=== PATIENT | male | born 1950 | race African-American/Black ===

== ENCOUNTER 2017-04-22 05:47 | Emergency (ER) | payer MEDICARE ==
[~2017-04-22] VITALS: Ht 170.2 cm; Wt 71.7 kg
[2017-04-22] MEDS ORDERED: UNOBMED (05:49)
--- NOTE | 2017-04-22 05:52 | Emergency Room Report ---
History of Present Illness General Chief Complaint: Nausea, Vomiting, and Diarrhea Source: Patient Present Illness HPI Is a 66-year-old who has multiple medical problem. He also has a history of alcohol abuse. He just got to sober living for rehabilitation. He presents with chief complaint of vomiting and diarrhea. Also abdominal cramps. Onset for last couple hours. [place] weak. No fever chills but no chest pain. Last drink was over a week ago. He was doing well until tonight. Denies any other complaint. Allergies: Coded Allergies: No Known Allergies (Unverified , 04/22/17) Patient History Past Medical History: see triage record, old chart reviewed, HTN Past Surgical History: other Pertinent Family History: none Social History: Reports: alcohol use Immunizations: other Reviewed Nursing Documentation: PMH: Agreed, PSxH: Agreed Nursing Documentation-PMH Hx Hypertension: Yes History Of Psychiatric Problem: Yes - PTSD Hx Seizures: Yes Review of Systems Eye: Denies: eye pain, blurred vision ENT: Denies: ear pain, nose congestion, throat swelling Respiratory: Denies: cough, shortness of breath Cardiovascular: Denies: chest pain, palpitations Gastrointestinal: Reports: abdominal pain, diarrhea, nausea, vomiting Musculoskeletal: Denies: back pain, joint pain Skin: Denies: rash Neurological: Denies: headache, numbness Endocrine: Denies: increased thirst, increased urine Hematologic/Lymphatic: Denies: easy bruising All Other Systems: negative except mentioned in HPI Physical Exam Vital Signs Date Time Temp Pulse Resp B/P (MAP) Pulse Ox O2 Delivery O2 Flow Rate FiO2 04/22/17 05:41 97.9 105 13 94/72 96 vitals with tachycardia and hypotension Sp02 EP Interpretation: reviewed, normal General Appearance: well appearing, no apparent distress, alert Head: normocephalic, atraumatic Eyes: bilateral eye PERRL, bilateral eye EOMI ENT: hearing grossly normal, normal pharynx Neck: full range of motion, supple, no meningismus Respiratory: chest non-tender, lungs clear, normal breath sounds Cardiovascular #1: regular rate, rhythm, no murmur Gastrointestinal: normal bowel sounds, non tender, no mass, no organomegaly, no bruit, non-distended, abnormal bowel sounds - Hyperactive Musculoskeletal: back normal, gait/station normal, normal range of motion Psychiatric: mood/affect normal Skin: warm/dry Medical Decision Making Diagnostic Impression: Primary Impression: Nausea, vomiting, and diarrhea ER Course Patient presents with nausea vomiting diarrhea. Most likely an acute gastroenteritis. No evidence of acute abdomen. He felt better now. No vomiting here. It labs are unremarkable patient can be discharged home. Last Vital Signs Date Time Temp Pulse Resp B/P (MAP) Pulse Ox O2 Delivery O2 Flow Rate FiO2 04/22/17 05:41 97.9 105 13 94/72 96 Status: improved Disposition: HOME, SELF-CARE Condition: Stable Scripts Ondansetron (Zofran) 4 Mg Tablet 4 MG ORAL Q6H Y for Nausea & Vomiting, #10 TAB 0 Refills Prov: RAHCELE POSADA M.D. 04/22/17 Patient Instructions: DIET, Vomiting or Diarrhea [6yr-Adult] Additional Instructions: followup with your Dr. in 7 days. Return if symptom worsen. RACHELE POSADA M.D. Apr 22, 2017 05:52
[2017-04-22 06:00] VITALS: BP 94/72
[2017-04-22] MEDS ORDERED: ZOFRAN4 MG ORAL (06:35)
[2017-04-22 06:40] LABS: ALBUMIN/GLOBULIN RATIO 1.3 (1.0-2.7); CALCIUM 9.8 mg/dL (8.6-10.2); CREATININE 1.9 mg/dL (0.7-1.2); GLOMERULAR FILTRATION RATE 43.4 mL/min (>60); TOTAL PROTEIN 7.5 g/dL (6.6-8.7)
[2017-04-22 07:04] LABS: BILIRUBIN,DIRECT 0.2 mg/dL (0.1-0.3)
[2017-04-22 07:08] LABS: BASOPHILS % (AUTO) 0.8 % (0.0-2.0); EOSINOPHILS % (AUTO) 0.2 % (0.0-3.0); LYMPHOCYTES % (AUTO) 19.8 % (20.0-45.0); MEAN CORPUSCULAR HEMOGLOBIN 33.2 PG (27.0-31.0); MEAN CORPUSCULAR HGB CONC 34.7 G/DL (32.0-36.0); MEAN CORPUSCULAR VOLUME 96 FL (80-99); MEAN PLATELET VOLUME 7.2 FL (6.5-10.1); MONOCYTES % (AUTO) 7.8 % (1.0-10.0); NEUTROPHILS % (AUTO) 71.3 % (45.0-75.0); PLATELET COUNT 269 K/UL (150-450); RED BLOOD COUNT 5.38 M/UL (4.70-6.10); RED CELL DISTRIBUTION WIDTH 13.2 % (11.6-14.8); WHITE BLOOD COUNT 14.9 K/UL (4.8-10.8)
[2017-04-22] MEDS ORDERED: KCl 10% 40mEq/30ml liquid ORAL ONE (07:45)
[2017-04-22 08:15] VITALS: BP 101/62
[2017-04-22 09:53] VITALS: BP 105/60
[2017-04-22 09:54] VITALS: BP 105/60
== END 2017-04-22 09:45 | disposition home or self-care (01) ==
LOC: EDBD 05:47 → EMR 06:27 → EDBD 06:27 → EMR 09:45
DX: R11.2 Nausea with vomiting, unspecified (principal); R19.7 Diarrhea, unspecified; I10 Essential (primary) hypertension
CPT/HCPCS: 36415; 80053; 82248; 83690; 85025; 96360; 96361; 96374; 99284; J2405

== ENCOUNTER 2017-09-21 21:08 | Inpatient (IN) | payer MEDICARE, OTHER ==
[~2017-09-21] VITALS: Ht 167.6 cm; Wt 68.9 kg
[~2017-09-21 21:08] MED LIST: UNOBMED; ZOFRAN4 MG ORAL
[2017-09-21] MEDS ORDERED: Nitroglycerin 2% oint pkt TOPIC ONE (21:15)
[2017-09-21] MEDS ORDERED: Mylanta II UD 30ml ORAL ONE (21:15)
[2017-09-21] MEDS ORDERED: Morphine Sulfate 2mg/ml Inj IVP ONE (21:15)
[2017-09-21 21:30] VITALS: BP 134/96
[2017-09-21 21:40] LABS: APPEARANCE,URINE CLEAR; BILIRUBIN, URINE NEGATIVE (NEGATIVE); COLOR,URINE PALE YELLOW; GLUCOSE, URINE (UA) NEGATIVE (NEGATIVE); KETONES,URINE NEGATIVE (NEGATIVE); LEUKOCYTE ESTERASE ,URINE NEGATIVE (NEGATIVE); NITRITE,URINE NEGATIVE (NEGATIVE); PH,URINE 5 (4.5-8.0); PROTEIN,URINE 1+ (NEGATIVE); UROBILINOGEN,URINE NORMAL MG/DL (0.0-1.0)
[2017-09-21 21:42] LABS: BASOPHILS % (AUTO) 1.9 % (0.0-2.0); HEMATOCRIT 38.4 % (42.0-52.0); HEMOGLOBIN 12.7 G/DL (14.2-18.0); MEAN CORPUSCULAR VOLUME 94 FL (80-99); MONOCYTES % (AUTO) 9.3 % (1.0-10.0); NEUTROPHILS % (AUTO) 61.9 % (45.0-75.0); PLATELET COUNT 184 K/UL (150-450); RED CELL DISTRIBUTION WIDTH 14.1 % (11.6-14.8); WHITE BLOOD COUNT 7.3 K/UL (4.8-10.8)
[2017-09-21 21:55] LABS: ANION GAP 12 mmol/L (5-15); BLOOD UREA NITROGEN 13 mg/dL (7-18); CALCIUM 8.2 MG/DL (8.5-10.1); CARBON DIOXIDE 23 MMOL/L (21-32); CHLORIDE 114 MMOL/L (98-107); POTASSIUM 3.4 MMOL/L (3.5-5.1); SODIUM 149 MMOL/L (136-145)
[2017-09-21 22:07] LABS: ALANINE AMINOTRANSFERASE 11 U/L (12-78); ALBUMIN 3.4 G/DL (3.4-5.0); ALKALINE PHOSPHATASE 72 U/L (46-116); ASPARTATE AMINO TRANSFERASE 31 U/L (15-37); BILIRUBIN,TOTAL 0.3 MG/DL (0.2-1.0); CREATINE KINASE 194 U/L (26-308)
[2017-09-21 22:30] VITALS: BP 126/80
[2017-09-21] MEDS ORDERED: KEPPRA750 MG ORAL (23:17)
[2017-09-21] MEDS ORDERED: PRAZOSIN HCL2 MG PO (23:17)
[2017-09-21] MEDS ORDERED: LIPITOR20 MG ORAL (23:17)
[2017-09-21] MEDS ORDERED: CELEXA20 MG ORAL (23:17)
[2017-09-21] MEDS ORDERED: IBUPROFEN600 MG ORAL (23:17)
--- NOTE | 2017-09-21 23:27 | Emergency Room Report ---
History of Present Illness General Chief Complaint: Chest Pain Source: Patient, EMS Present Illness HPI The patient presents with half an hour of severe left-sided chest pain. He states is somewhat pleuritic but also pressure and burning. He's had this type of pain before. He was seen at the [facility] earlier today for evaluation of his pacemaker. He was not kept there. The pain is now 7/10. Paramedics treated the patient with aspirin and nitroglycerin. Their EKG did not show ischemia or injury. He states he's somewhat improved with the nitroglycerin they gave him. He denies ever smoking. He denies having a heart attack in the past. History for hypertension. No diabetes, family history. The patient had a pacemaker placed after a marathon many years ago. He collapsed after running the marathon. No fevers, sore throat, NVD, dysuria, joint pain. He was at a bus stop when he called paramedics. He admits to being an alcoholic. Allergies: Coded Allergies: No Known Allergies (Unverified , 09/22/17) Patient History Past Medical History: see triage record Past Surgical History: pacemaker Social History: Reports: alcohol use, Denies: smoking Social History Narrative [facility] Reviewed Nursing Documentation: PMH: Agreed, PSxH: Agreed Nursing Documentation-PMH Hx Cardiac Problems: Yes Hx Hypertension: Yes Hx Pacemaker: Yes Hx Seizures: Yes Review of Systems All Other Systems: negative except mentioned in HPI Physical Exam Vital Signs Date Time Temp Pulse Resp B/P (MAP) Pulse Ox O2 Delivery O2 Flow Rate FiO2 09/21/17 21:03 98.4 99 22 134/96 100 Room Air 09/21/17 21:30 98 Sp02 EP Interpretation: reviewed, normal General Appearance: well appearing, mild distress Head: normocephalic Eyes: bilateral eye PERRL, bilateral eye Scleral Injection ENT: moist mucus membranes Neck: supple Respiratory: lungs clear, normal breath sounds Cardiovascular #1: regular rate, rhythm Cardiovascular #2: 2+ radial (R) Gastrointestinal: normal inspection, normal bowel sounds, non tender, no mass, non-distended, scaphoid Musculoskeletal: back normal, gait/station normal, normal range of motion Neurologic: alert, oriented x3, grossly normal Psychiatric: no suicidal/homicidal ideation, other - short with staff Skin: normal inspection, warm/dry Medical Decision Making Diagnostic Impression: Primary Impression: Chest pain Qualified Codes: R07.89 - Other chest pain ER Course The patient presents with chest pain. Differential includes acute myocardial infarction, acute coronary syndrome, costochondritis or pleurisy, bronchitis, pulmonary embolus amongst others. Based on the oxygen saturation pulmonary embolus is less likely. The patient needs evaluation with EKG, chest x-ray and labs. The patient be treated with continued nitrates and also morphine. The fact that he improved with nitrates suggested this might be cardiac origin. EKG shows sinus tachycardia with no injury. Chest x-ray shows pacemaker. Labs are significant for negative troponin. The patient vomited copious amounts after receiving morphine. After this he started to feel better. Based on the fact that his age and the character of the pain, the patient needs observation and repeated troponins. The patient is admitted to telemetry to the care of Dr. Rebollar. Patient admitted before subsequent troponin results recorded. Laboratory Tests Test 09/21/17 21:20 09/22/17 03:05 09/22/17 11:30 09/22/17 18:15 White Blood Count 7.3 K/UL (4.8-10.8) Red Blood Count 4.10 M/UL (4.70-6.10) L Hemoglobin 12.7 G/DL (14.2-18.0) L Hematocrit 38.4 % (42.0-52.0) L Mean Corpuscular Volume 94 FL (80-99) Mean Corpuscular Hemoglobin 31.1 PG (27.0-31.0) H Mean Corpuscular Hemoglobin Concent 33.2 G/DL (32.0-36.0) Red Cell Distribution Width 14.1 % (11.6-14.8) Platelet Count 184 K/UL (150-450) Mean Platelet Volume 8.6 FL (6.5-10.1) Neutrophils (%) (Auto) 61.9 % (45.0-75.0) Lymphocytes (%) (Auto) 26.0 % (20.0-45.0) Monocytes (%) (Auto) 9.3 % (1.0-10.0) Eosinophils (%) (Auto) 1.0 % (0.0-3.0) Basophils (%) (Auto) 1.9 % (0.0-2.0) Prothrombin Time 10.0 SEC (9.30-11.50) Prothrombin Time INR 1.0 (0.9-1.1) PTT 22 SEC (23-33) L Urine Color Pale yellow Urine Appearance Clear Urine pH 5 (4.5-8.0) Urine Specific [place] 1.020 (1.005-1.035) Urine Protein 1+ (NEGATIVE) H Urine Glucose (UA) Negative (NEGATIVE) Urine Ketones Negative (NEGATIVE) Urine Occult Blood 1+ (NEGATIVE) H Urine Nitrite Negative (NEGATIVE) Urine Bilirubin Negative (NEGATIVE) Urine Urobilinogen Normal MG/DL (0.0-1.0) Urine Leukocyte Esterase Negative (NEGATIVE) Urine RBC 2-4 /HPF (0 - 0) H Urine WBC 0-2 /HPF (0 - 0) Urine Squamous Epithelial Cells None /LPF (NONE/OCC) Urine Bacteria Few /HPF (NONE) Sodium Level 149 MMOL/L (136-145) H Potassium Level 3.4 MMOL/L (3.5-5.1) L Chloride Level 114 MMOL/L (98-107) H Carbon Dioxide Level 23 MMOL/L (21-32) Anion Gap 12 mmol/L (5-15) Blood Urea Nitrogen 13 mg/dL (7-18) Creatinine 1.0 MG/DL (0.55-1.30) Estimate Glomerular Filtration Rate > 60 mL/min (>60) Glucose Level 83 MG/DL (74-106) Calcium Level 8.2 MG/DL (8.5-10.1) L Total Bilirubin 0.3 MG/DL (0.2-1.0) Aspartate Amino Transferase (AST) 31 U/L (15-37) Alanine Aminotransferase (ALT) 11 U/L (12-78) L Alkaline Phosphatase 72 U/L (46-116) Total Creatine Kinase 194 U/L (26-308) Troponin I 0.000 ng/mL (0.000-0.056) 0.018 ng/mL (0.000-0.056) 0.012 ng/mL (0.000-0.056) 0.000 ng/mL (0.000-0.056) Pro-B-Type Natriuretic Peptide 128 pg/mL (0-125) H Total Protein 6.8 G/DL (6.4-8.2) Albumin 3.4 G/DL (3.4-5.0) Globulin 3.4 g/dL Albumin/Globulin Ratio 1.0 (1.0-2.7) Test 09/23/17 06:40 Sodium Level 141 MMOL/L (136-145) Potassium Level 3.2 MMOL/L (3.5-5.1) L Chloride Level 106 MMOL/L (98-107) Carbon Dioxide Level 27 MMOL/L (21-32) Anion Gap 8 mmol/L (5-15) Blood Urea Nitrogen 9 mg/dL (7-18) Creatinine 0.9 MG/DL (0.55-1.30) Estimate Glomerular Filtration Rate > 60 mL/min (>60) Glucose Level 83 MG/DL (74-106) Calcium Level 8.6 MG/DL (8.5-10.1) EKG Diagnostic Results Rate: tachycardiac ST Segments: no acute changes Rhythm Strip Diag. Results EP Interpretation: yes Rhythm: no PVC's, no ectopy, other - ST Chest X-Ray Diagnostic Results Chest X-Ray Diagnostic Results : Chest X-Ray Ordered: Yes # of Views/Limited/Complete: 1 View Indication: Chest Pain EP Interpretation: Yes Interpretation: no consolidation, no effusion, no pneumothorax, other - pacemaker Impression: No acute disease Electronically Signed by: Electronically signed by Gary Stewart MD Status: improved Disposition: ADMITTED INPATIENT Condition: Serious Referrals: NON PHYSICIAN (PCP) Gary Stewart M.D. Sep 21, 2017 23:27
[2017-09-21 23:30] VITALS: BP 122/84
[2017-09-22] VITALS (7 sets, daily range): BP systolic 125–140; BP diastolic 70–99
[2017-09-22] MEDS ORDERED: Lexiscan 0.4mg/5ml syringe IV PRN (00:15)
--- NOTE | 2017-09-22 08:49 | Diagnostic Imaging Report ---
Indication: Chest pain Technique: One view of the chest Comparison: none Findings: There is a fracture deformity of the left clavicle, acuity indeterminate. The lungs and pleural spaces are clear. Left chest pacemaker is noted. Normal heart size Impression: Acuity indeterminate left clavicular fracture No acute cardiopulmonary process Pacemaker. This agrees with the preliminary interpretation provided by the emergency room physician
[2017-09-22] MEDS: Citalopram Hydrobromide 10mg Tab ORAL SCH (09:09)
[2017-09-22] MEDS: Aspirin Baby 81mg ORAL SCH (09:10)
[2017-09-22] MEDS: Heparin 5000 units/ml inj SUBQ SCH ×2 (09:11→22:15)
--- NOTE | 2017-09-22 16:20 | History & Physical ---
History and Physical History & Physicial The patient presents with half an hour of severe left-sided chest pain. He states is somewhat pleuritic but also pressure and burning. He's had this type of pain before. [facility] today for evaluation of his pacemaker. PMH: pacemaker MEDS: reviewed ALLERGIES: reviewed Physical WDWN NAD clear breath sounds bilaterally without rhonchi or wheeze [id number] without MRG NABS nontender no HSM no CCE nonfocal Laboratory Tests Test 09/21/17 21:20 09/22/17 03:05 09/22/17 11:30 White Blood Count 7.3 K/UL (4.8-10.8) Red Blood Count 4.10 M/UL (4.70-6.10) L Hemoglobin 12.7 G/DL (14.2-18.0) L Hematocrit 38.4 % (42.0-52.0) L Mean Corpuscular Volume 94 FL (80-99) Mean Corpuscular Hemoglobin 31.1 PG (27.0-31.0) H Mean Corpuscular Hemoglobin Concent 33.2 G/DL (32.0-36.0) Red Cell Distribution Width 14.1 % (11.6-14.8) Platelet Count 184 K/UL (150-450) Mean Platelet Volume 8.6 FL (6.5-10.1) Neutrophils (%) (Auto) 61.9 % (45.0-75.0) Lymphocytes (%) (Auto) 26.0 % (20.0-45.0) Monocytes (%) (Auto) 9.3 % (1.0-10.0) Eosinophils (%) (Auto) 1.0 % (0.0-3.0) Basophils (%) (Auto) 1.9 % (0.0-2.0) Prothrombin Time 10.0 SEC (9.30-11.50) Prothromb Time International Ratio 1.0 (0.9-1.1) Activated Partial Thromboplast Time 22 SEC (23-33) L Urine Color Pale yellow Urine Appearance Clear Urine pH 5 (4.5-8.0) Urine Specific [place] 1.020 (1.005-1.035) Urine Protein 1+ (NEGATIVE) H Urine Glucose (UA) Negative (NEGATIVE) Urine Ketones Negative (NEGATIVE) Urine Occult Blood 1+ (NEGATIVE) H Urine Nitrite Negative (NEGATIVE) Urine Bilirubin Negative (NEGATIVE) Urine Urobilinogen Normal MG/DL (0.0-1.0) Urine Leukocyte Esterase Negative (NEGATIVE) Urine RBC 2-4 /HPF (0 - 0) H Urine WBC 0-2 /HPF (0 - 0) Urine Squamous Epithelial Cells None /LPF (NONE/OCC) Urine Bacteria Few /HPF (NONE) Sodium Level 149 MMOL/L (136-145) H Potassium Level 3.4 MMOL/L (3.5-5.1) L Chloride Level 114 MMOL/L (98-107) H Carbon Dioxide Level 23 MMOL/L (21-32) Anion Gap 12 mmol/L (5-15) Blood Urea Nitrogen 13 mg/dL (7-18) Creatinine 1.0 MG/DL (0.55-1.30) Estimat Glomerular Filtration Rate > 60 mL/min (>60) Glucose Level 83 MG/DL (74-106) Calcium Level 8.2 MG/DL (8.5-10.1) L Total Bilirubin 0.3 MG/DL (0.2-1.0) Aspartate Amino Transf (AST/SGOT) 31 U/L (15-37) Alanine Aminotransferase (ALT/SGPT) 11 U/L (12-78) L Alkaline Phosphatase 72 U/L (46-116) Total Creatine Kinase 194 U/L (26-308) Troponin I 0.000 ng/mL (0.000-0.056) Pending 0.012 ng/mL (0.000-0.056) Pro-B-Type Natriuretic Peptide 128 pg/mL (0-125) H Total Protein 6.8 G/DL (6.4-8.2) Albumin 3.4 G/DL (3.4-5.0) Globulin 3.4 g/dL Albumin/Globulin Ratio 1.0 (1.0-2.7) IMPRESSION hypernatremia possible ACS prior shoulder injury pacemaker PLAN troponins negative recheck bmp check stress test dc planning pending results ANGIE KWONG Sep 22, 2017 16:20
--- NOTE | 2017-09-22 16:22 | Diagnostic Imaging Report ---
Indications: 67-year-old male with chest pain, hypertension, history of pacemaker Technique: Single day single isotope protocol utilized. Initially, resting images obtained using IV administration 10.3 millicuries 99M technetium Myoview. Subsequently, patient underwent lexiscan stress testing. See cardiology report for details. During Lexiscan infusion, IV administration 28.6 mCi 99 M technetium Myoview. SPECT and planar images obtained. SPECT images gated to 8 phases of the cardiac cycle were also obtained, and reformatted into cine images for evaluation of ejection fraction. Comparison: none Findings: Per cardiology report, patient experienced no symptoms. Per cardiology report, resting EKG demonstrates normal sinus rhythm with prolonged QT interval. No ST-T wave changes were demonstrated. PVCs were noted. Imaging demonstrates a large fixed perfusion defect of the posterior wall, extending into the apex, with out evidence of reperfusion on the resting images.. Normal cardiac chamber size. Calculated post stress ejection fraction 48%. There is relative slight hypokinesis of the inferior and septal nael Impression: Nonischemic clinical response to pharmacologic stress, per cardiology report Nonischemic electrocardiographic response to pharmacologic stress, per cardiology report Findings suggestive of inferior wall infarct. No Imaging findings to suggest ischemia, at level of stress achieved. Calculated post stress ejection fraction 48%
[2017-09-22] MEDS ORDERED: Atorvastatin 20mg tab ORAL SCH (21:00)
[2017-09-23] VITALS: BP 143/95
[2017-09-23 04:00] VITALS: BP 135/91
[2017-09-23 08:00] VITALS: BP 131/93
[2017-09-23 08:34] LABS: ANION GAP 8 mmol/L (5-15); BLOOD UREA NITROGEN 9 mg/dL (7-18); CALCIUM 8.6 MG/DL (8.5-10.1); CARBON DIOXIDE 27 MMOL/L (21-32); CHLORIDE 106 MMOL/L (98-107); CREATININE 0.9 MG/DL (0.55-1.30); POTASSIUM 3.2 MMOL/L (3.5-5.1); SODIUM 141 MMOL/L (136-145)
--- NOTE | 2017-09-23 08:50 | General Progress Note ---
Assessment/Plan Assessment/Plan IMPRESSION hypernatremia abnormal stress but no reversible defects prior shoulder injury pacemaker ? prior [facility] PLAN troponins negative dc home patient aware of prior shoulder injury to left side aware of results will need cards follow up aspirin on discharge Subjective Allergies: Coded Allergies: No Known Allergies (Unverified , 09/22/17) Subjective care noted and reviewed with patient Objective Last 24 Hour Vital Signs Date Time Temp Pulse Resp B/P (MAP) Pulse Ox O2 Delivery O2 Flow Rate FiO2 09/23/17 04:05 60 09/23/17 04:00 97.0 70 20 135/91 98 Nasal Cannula 2.0 09/23/17 00:00 98.1 68 22 143/95 96 Nasal Cannula 2.0 09/23/17 00:00 98.1 68 22 143/95 96 Nasal Cannula 2.0 09/22/17 23:32 99.1 09/22/17 20:00 78 09/22/17 20:00 99.1 75 20 135/89 96 Nasal Cannula 2.0 09/22/17 19:29 Room Air 09/22/17 19:29 97 Room Air 09/22/17 16:00 66 09/22/17 16:00 96.8 78 18 140/90 99 Nasal Cannula 2.0 09/22/17 12:00 97.0 67 19 135/99 99 Nasal Cannula 2.0 09/22/17 12:00 71 Intake and Output 09/22/17 09/23/17 19:00 07:00 Intake Total 200 ml Output Total 675 ml Balance -475 ml Intake Oral 200 ml Output Urine Total 675 ml # Bowel Movements 2 1 Laboratory Tests 09/22/17 11:30: Troponin I 0.012 09/22/17 18:15: Troponin I 0.000 09/23/17 06:40: Sodium Level 141, Potassium Level 3.2L, Chloride Level 106, Carbon Dioxide Level 27, Anion Gap 8, Blood Urea Nitrogen 9, Creatinine 0.9, Estimat Glomerular Filtration Rate > 60, Glucose Level 83, Calcium Level 8.6 Height (Feet): 5 Height (Inches): 6.00 Weight (Pounds): 152 Objective WDWN NAD clear breath sounds bilaterally without rhonchi or wheeze [id number] without MRG NABS nontender no HSM no CCE nonfocal shoulder pain ANGIE KWONG Sep 23, 2017 08:50
[2017-09-23] MEDS: Aspirin Baby 81mg ORAL SCH (09:09)
[2017-09-23] MEDS: Citalopram Hydrobromide 10mg Tab ORAL SCH (09:09)
[2017-09-23] MEDS: Heparin 5000 units/ml inj SUBQ SCH (09:16)
[2017-09-23 12:00] VITALS: BP 133/92
--- NOTE | 2017-09-23 16:45 | Consultation ---
DATE OF CONSULTATION: 09/22/2017 CARDIOLOGY CONSULTATION REASON FOR CONSULTATION: Chest pain. HISTORY OF PRESENT ILLNESS: This is a 67-year-old male, who presented to the emergency room with complaints of chest pain on the left side. He described it as pressure-like and burning. He has a pacemaker that was recently evaluated at the [facility]. PAST MEDICAL HISTORY: Notable for bipolar disorder and hyperlipidemia. MEDICATIONS: Reviewed and reconciled. ALLERGIES: None known. SOCIAL HISTORY: Denies smoking, alcohol, or substance abuse at this time. REVIEW OF SYSTEMS: A 10-point review of systems performed. All systems negative other than outlined above. PHYSICAL EXAMINATION: VITAL SIGNS: Blood pressure 134/96, pulse 99, and respirations 22. Afebrile. NECK: Supple. LUNGS: Clear. Left chest wall pacemaker site without tenderness or erythema. CARDIAC: Regular. Normal S1 and S2. ABDOMEN: Soft. EXTREMITIES: No edema. LABORATORY AND DIAGNOSTIC DATA: EKG with sinus tachycardia and no acute changes. Chest x-ray, no acute process. Pacemaker noted. Troponin is 0.018 and 0.012. IMPRESSION: 1. Acute coronary syndrome. 2. Hypertensive heart disease. 3. Chronic systolic and diastolic congestive heart failure. 4. Permanent pacemaker. PLAN: 1. Cardiac monitoring. 2. Serial troponin. 3. Maximize antianginal regimen. 4. Outpatient pacemaker interrogation has recently been done at the [facility]. Records will be confirmed. 5. Myocardial perfusion scan is to be considered to assess coronary flow reserve and help guide long-term medical management. Gary Kelley M.D. DR: DAYO JOB#: [id number] CC:
--- NOTE | 2017-09-23 17:00 | Progress Note ---
DATE: 09/23/2017 CARDIOLOGY PROGRESS NOTE SUBJECTIVE: The patient was seen and evaluated. He has no chest pain or shortness of breath. His myocardial perfusion scan from yesterday was reviewed and discussed with him in detail. The study reveals post-stress ejection fraction of 48% with hypokinesis of the inferior and septal neal and evidence of prior inferior wall infarction. No ischemia was noted at the level of stress achieved. OBJECTIVE: VITAL SIGNS: Blood pressure 131/93, pulse 68, respirations 21, and afebrile. NECK: Supple. LUNGS: Clear. CARDIAC: Regular rhythm and rate. Normal S1 and S2 with a fourth heart sound. ABDOMEN: Soft. EXTREMITIES: No edema. IMPRESSION: 1. Ischemic heart disease. 2. History of myocardial infarction. 3. Systolic and diastolic dysfunction, compensated. PLAN: 1. Add antiplatelet therapy with aspirin. 2. Continue statin drug for LDL goal less than 100. 3. Add angiotensin-converting enzyme inhibitor for left ventricular dysfunction and up-titrate for optimal blood pressure range. 4. Outpatient followup offered. Gary Kelley M.D. DR: ALEX JOB#: [id number] CC:
--- NOTE | 2017-09-24 10:35 | Discharge Summary ---
Discharge Summary Hospital Course Date of Admission Sep 21, 2017 at 22:05 Date of Discharge Sep 23, 2017 at 12:30 Admitting Diagnosis ACS HPI Dangelo Contreras, Iv is a 67 year old male who was admitted on Sep 21, 2017 at 22:05 for Acute Coronary Syndrom Hospital Course [id number] Discharge Discharge Disposition Patient was discharged to homeless Discharge Diagnoses: Callie Mcgill NP Sep 24, 2017 10:35
--- NOTE | 2017-09-24 22:15 | Discharge Summary 2 SIG ---
DATE OF ADMISSION: 09/21/2017 DATE OF DISCHARGE: 09/23/2017 CONSULTANTS: Gary Kelley M.D. BRIEF HOSPITAL COURSE: The patient is a 67-year-old male, who presented to ED complaining of an hour and half severe left-sided chest pain, which is somewhat pleuritic and burning in nature. He has had this same type of pain before and was seen [facility] recently for evaluation of his pacemaker. He has medical history significant for hyperlipidemia and bipolar disorder. On evaluation at ED, EKG showed sinus tachycardia. Chest x-ray showed no acute cardiopulmonary process with an indeterminate acuity of a left clavicular fracture. Initial troponin was negative. He was given nitroglycerin with improvement of symptoms. He was given morphine, however, the patient vomited copious amounts after receiving pain medication. He was admitted to telemetry for cardiac evaluation. He was seen by Dr. Kelley. Cardiac monitoring and serial troponin done. Troponins were negative. He underwent a myocardial perfusion scan on 09/22/2017, results were nonischemic. Calculated post stress ejection fraction of 48 with hypokinesis in the inferior and septal neal and evidence of prior inferior wall infarct. There was no ischemia noted at the level of stress achieved. He was continued with anti-platelet therapy and Lipitor. He was eventually discharged to a assisted, bus tokens were provided. FINAL DIAGNOSES: 1. Ischemic heart disease. 2. History of myocardial infarction. 3. Systolic and diastolic dysfunction, compensated. 4. Permanent pacemaker. 5. Prior shoulder history. 6. Hypernatremia. DISPOSITION: The patient was discharged home. DISCHARGE MEDICATIONS: Refer to medication list. DISCHARGE INSTRUCTIONS: Follow up with PMD in a week. Alfonzo Rebollar M.D. I have been assigned to dictate discharge summary on this account and I was not involved in the patient's management. Callie Mcgill N.P. DR: NASEEM JOB#: [id number] CC: JERONIMO
--- NOTE | 2017-09-29 18:32 | Cardiology Report ---
APPROVED REPORT EKG Measurement Heart [id number] Sinus tachycardia Otherwise normal ECG
--- NOTE | 2017-10-03 17:00 | Cardiology Report ---
APPROVED REPORT EKG Measurement Heart [id number] Normal sinus rhythm Nonspecific T wave abnormality Prolonged QT Abnormal ECG
== END 2017-09-23 12:30 | disposition home or self-care (01) | DRG 303 ==
LOC: EDBD 21:08 → EMR 21:10 → 2E 22:05 → EDBEDREQ 09-22 00:30
DX: I25.9 Chronic ischemic heart disease, unspecified (principal); E87.0 Hyperosmolality and hypernatremia; I50.42 Chronic combined systolic (congestive) and diastolic (congestive) heart failure; I11.0 Hypertensive heart disease with heart failure; E78.5 Hyperlipidemia, unspecified; F31.9 Bipolar disorder, unspecified; I25.2 Old myocardial infarction; Z95.2 Presence of prosthetic heart valve
CPT/HCPCS: 36415; 71045; 78452; 80048; 80053; 80299; 81003; 82550; 83880; 84484; 85025; 85610; 85730; 87081; 93005; 93017; 94760; 99285; J2405; J2785; J8499

== ENCOUNTER 2017-12-27 15:02 | Emergency (ER) | payer MEDICARE, OTHER ==
[~2017-12-27] VITALS: Ht 167.6 cm; Wt 76.2 kg
[~2017-12-27 15:02] MED LIST changes: +CELEXA20 MG ORAL; +IBUPROFEN600 MG ORAL; +KEPPRA750 MG ORAL; +LIPITOR20 MG ORAL; +PRAZOSIN HCL2 MG PO
[2017-12-27] MEDS ORDERED: Acetaminophen 500mg (ES) tab PO ONE (15:15)
[2017-12-27] MEDS ORDERED: Tetanus/Diptheria/Pertussis Vaccine 0.5ml Syr IM ONE (15:15)
[2017-12-27 15:46] LABS: BASOPHILS % (AUTO) 1.4 % (0.0-2.0); HEMATOCRIT 43.2 % (42.0-52.0); HEMOGLOBIN 14.8 G/DL (14.2-18.0); LYMPHOCYTES % (AUTO) 43.3 % (20.0-45.0); MEAN CORPUSCULAR VOLUME 89 FL (80-99); MONOCYTES % (AUTO) 8.7 % (1.0-10.0); NEUTROPHILS % (AUTO) 45.7 % (45.0-75.0); PLATELET COUNT 205 K/UL (150-450); RED BLOOD COUNT 4.85 M/UL (4.70-6.10); RED CELL DISTRIBUTION WIDTH 11.4 % (11.6-14.8); WHITE BLOOD COUNT 7.7 K/UL (4.8-10.8)
[2017-12-27 15:54] LABS: ANION GAP 12 mmol/L (5-15); BLOOD UREA NITROGEN 14 mg/dL (7-18); CALCIUM 8.5 MG/DL (8.5-10.1); CARBON DIOXIDE 25 MMOL/L (21-32); CHLORIDE 110 MMOL/L (98-107); CREATININE 0.9 MG/DL (0.55-1.30); POTASSIUM 3.6 MMOL/L (3.5-5.1); SODIUM 146 MMOL/L (136-145)
[2017-12-27 15:55] LABS: ALANINE AMINOTRANSFERASE 29 U/L (12-78); ALBUMIN 3.7 G/DL (3.4-5.0); ALKALINE PHOSPHATASE 67 U/L (46-116); ASPARTATE AMINO TRANSFERASE 31 U/L (15-37); BILIRUBIN,TOTAL 0.8 MG/DL (0.2-1.0)
[2017-12-27 16:00] VITALS: BP 137/92
--- NOTE | 2017-12-27 16:21 | Diagnostic Imaging Report ---
Indication: Trauma Technique: Continuous helical CT scanning of the head was performed utilizing automated exposure control without intravenous contrast material. Axial and coronal reconstructions were obtained. Comparison: None CT dose: Total DLP 2491.2 mGycm; CTDI vol 70.38,28.19,16 mGy Findings: There is no acute intracranial hemorrhage, midline shift mass effect or cortical edema. The ventricles, cisterns and sulci are mildly prominent consistent with atrophy. Periventricular hypoattenuation is seen, a nonspecific finding. Atherosclerotic vascular calcifications noted. There is mucosal thickening with retention cyst or polyps in the bilateral maxillary sinuses. There is mild right posterior parietal and posterior midline soft tissue swelling. There is no depressed skull fracture. A left nasal bone fracture is partially visualized. IMPRESSION: No evidence of acute intracranial hemorrhage, midline shift, mass effect or cortical edema. Mild atrophy and nonspecific periventricular hypoattenuation suggestive of chronic ischemic microvascular changes. Mild right posterior parietal soft tissue swelling/scalp hematoma. No depressed calvarial fracture. Left nasal bone fracture partially visualized. Mild paranasal sinus disease. The CT scanner at [facility] is accredited by the [place] [employer] and the scans are performed using protocols designed to limit radiation exposure to as low as reasonably achievable to attain images of sufficient resolution adequate for diagnostic evaluation.
--- NOTE | 2017-12-27 16:27 | Diagnostic Imaging Report ---
Indication: Trauma Technique: CT cervical spine was performed utilizing automated exposure control without intravenous contrast material. Axial, sagittal and coronal images were generated. CT dose: Total DLP 2491.2 mGycm; CTDI vol 70.38,28.19,16 mGy Comparison: None Findings: There is straightening of the cervical lordosis. No acute fracture is identified. There is no evidence of dens fracture. There is overall moderate multilevel degenerative change of the cervical spine manifested by multilevel disc space narrowing, endplate subchondral sclerosis and cystic change and osteophyte formation. There is also uncovertebral and facet joint hypertrophy at multiple levels. There is no significant bony central canal stenosis. There are likely multilevel disc osteophyte complexes. Please note that the spinal cord and discs are better evaluated on MRI, which can be obtained for further evaluation as clinically indicated. No prevertebral soft tissue abnormality is appreciated. Thyroid is unremarkable in appearance. The visualized lung apices are clear. IMPRESSION: Multilevel degenerative change of the cervical spine as above. No evidence of acute cervical spine fracture. The CT scanner at [facility] is accredited by the [employer] and the scans are performed using protocols designed to limit radiation exposure to as low as reasonably achievable to attain images of sufficient resolution adequate for diagnostic evaluation.
[2017-12-27 16:34] LABS: APPEARANCE,URINE CLEAR; BILIRUBIN, URINE NEGATIVE (NEGATIVE); GLUCOSE, URINE (UA) NEGATIVE (NEGATIVE); KETONES,URINE NEGATIVE (NEGATIVE); LEUKOCYTE ESTERASE ,URINE 1+ (NEGATIVE); NITRITE,URINE NEGATIVE (NEGATIVE); PH,URINE 6 (4.5-8.0); PROTEIN,URINE 2+ (NEGATIVE); UROBILINOGEN,URINE NORMAL MG/DL (0.0-1.0)
[2017-12-27 16:35] LABS: COLOR,URINE YELLOW
--- NOTE | 2017-12-27 16:36 | Diagnostic Imaging Report ---
Indication: Trauma Technique: CT maxillofacial was performed utilizing automated exposure control without intravenous contrast material. Axial and coronal images were generated. CT dose: (Combined CT head/facial bones/cervical spine) Total DLP 2491 mGycm; CTDI vol 0.2, 70.4, 28.2, 16 mGy Comparison: None Findings: Patient acute, mildly displaced fracture of the left nasal bone (series 11 image #21). There is also a mildly displaced/depressed fracture of the left zygomatic arch (series 11 image #24). The bony orbits are intact. Globes are symmetric. No intraorbital pathology identified. Septum is midline. There is mucosal thickening with retention cysts or polyps in the bilateral maxillary sinuses. No acute fracture is identified. The mandible, midface and nasal bones are intact. The orbits are unremarkable. Paranasal sinuses and mastoid air cells are clear. The nasal septum is midline. Visualized intracranial compartment is unremarkable. Impression: Mildly displaced fractures of the left nasal bone and left zygomatic arch. The CT scanner at [facility] is accredited by the [employer] and the scans are performed using protocols designed to limit radiation exposure to as low as reasonably achievable to attain images of sufficient resolution adequate for diagnostic evaluation.
--- NOTE | 2017-12-27 17:16 | Diagnostic Imaging Report ---
Indication: Trauma Technique: XRAY Chest 1v Comparison: 09/21/2017 Findings: Heart size and mediastinal contours are stable allowing for differences in inspiration. There is patchy likely atelectasis at the left base. No pleural effusion or pneumothorax. No acute osseous abnormality seen. There is a remote fracture deformity of the left clavicle. Pacemaker noted. IMPRESSION: Low lung volumes with patchy left base likely atelectasis. Correlate clinically to exclude the possibility of a developing infiltrate. No acute osseous abnormality.
--- NOTE | 2017-12-27 23:52 | Emergency Room Report ---
History of Present Illness General Chief Complaint: Head, Face, Neck Trauma Source: EMS Present Illness Allergies: Coded Allergies: No Known Allergies (Unverified , 09/22/17) Nursing Documentation-[facility] Past Medical History: No History, Except For Hx Cardiac Problems: Yes Hx Hypertension: Yes Hx Pacemaker: Yes - left chest Hx Cancer: No Hx Neurological Problems: Yes Hx Seizures: Yes Hx Dizziness: Yes Hx Weakness: Yes Physical Exam Vital Signs Date Time Temp Pulse Resp B/P (MAP) Pulse Ox O2 Delivery O2 Flow Rate FiO2 12/27/17 14:57 98.5 71 18 137/92 98 Room Air 98.4 Medical Decision Making Diagnostic Impression: Primary Impression: Alcohol intoxication Qualified Codes: F10.920 - Alcohol use, unspecified with intoxication, uncomplicated Additional Impression: Head injury, acute Qualified Codes: S09.90XA - Unspecified injury of head, initial encounter ER Course Patient signout to me. Patient presents with alcohol intoxication and head injury. CT scan negative. Patient has been sleeping for several hours now. He is walking around without any difficulty. No slurred speech. He is clinically sober. We'll discharge home. No criteria for 5150. Last Vital Signs Date Time Temp Pulse Resp B/P (MAP) Pulse Ox O2 Delivery O2 Flow Rate FiO2 12/27/17 16:19 98.5 12/27/17 16:00 75 18 137/92 98 Room Air Status: improved Disposition: HOME, SELF-CARE Condition: Stable Referrals: NOT CHOSEN IPA/,REFERRING (PCP) Additional Instructions: Abstain from drinking alcohol. Follow-up with your doctor in 7 days. Return if worse. RACHELE POSADA M.D. Dec 27, 2017 23:52
[2017-12-28] VITALS: BP 147/99
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
== END 2017-12-28 | disposition home or self-care (01) ==
LOC: EDBD 15:02 → EMR 16:36
DX: S01.01XA Laceration without foreign body of scalp, initial encounter (principal); S01.21XA Laceration without foreign body of nose, initial encounter; S02.2XXA Fracture of nasal bones, initial encounter for closed fracture; W19.XXXA Unspecified fall, initial encounter; S02.40FA Zygomatic fracture, left side, initial encounter for closed fracture; Y92.9 Unspecified place or not applicable; Z23 Encounter for immunization; F10.129 Alcohol abuse with intoxication, unspecified; I10 Essential (primary) hypertension; Z95.0 Presence of cardiac pacemaker
CPT/HCPCS: 36415; 70450; 70486; 71045; 72125; 80053; 80307; 81001; 85025; 85610; 85730; 90471; 90715; 96374; 99284; G0480; 80329

== ENCOUNTER 2018-01-08 15:38 | Emergency (ER) | payer OTHER ==
[~2018-01-08] VITALS: Ht 167.6 cm; Wt 70.8 kg
[2018-01-08 15:43] VITALS: BP 124/84
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
[2018-01-08] MEDS ORDERED: MINIPRESS1 MG PO (16:13)
[2018-01-08] MEDS ORDERED: ACETAMINOPHEN325 M1 ORAL (16:13)
[2018-01-08] MEDS ORDERED: ZESTRIL2.5 MG ORAL (16:13)
[2018-01-08] MEDS ORDERED: TAMSULOSIN HCL0.4 MG ORAL (16:13)
[2018-01-08] MEDS ORDERED: LEVETIRACETAM750 M1 ORAL (16:13)
[2018-01-08] MEDS ORDERED: METOPROLOL SUCC25 MG ORAL (16:13)
[2018-01-08] MEDS ORDERED: IBUPROFEN600 MG ORAL (16:14)
[2018-01-08] MEDS ORDERED: ATORVASTATIN CA20 MG ORAL (16:14)
[2018-01-08] MEDS ORDERED: Tetanus/Diptheria/Pertussis Vaccine 0.5ml Syr IM ONE (16:30)
--- NOTE | 2018-01-08 17:46 | Diagnostic Imaging Report ---
EXAM: CT Cervical Spine Without Intravenous Contrast CLINICAL HISTORY: PAIN TECHNIQUE: Axial computed tomography images of the cervical spine without intravenous contrast. CTDI is 16.12 mGy and DLP is 279.67 mGy-cm. One or more of the following dose reduction techniques were used: automated exposure control, adjustment of the mA and/or kV according to patient size, use of iterative reconstruction technique. COMPARISON: No relevant prior studies available. FINDINGS: Vertebrae: No visible displaced fracture. Cervical body heights are preserved. The atlantodens interval appears unremarkable. Discs/spinal canal/neural foramina: No acute findings. Multilevel degenerative disc space narrowing with facet and uncovertebral arthropathy and anterior and posterior osteophytes. Varying degrees of foraminal stenosis.. Soft tissues: Unremarkable. Lung apices: Unremarkable as visualized. IMPRESSION: 1. Multilevel cervical spondylosis with varying degrees of central or foraminal stenosis.
--- NOTE | 2018-01-08 17:54 | Diagnostic Imaging Report ---
EXAM: CT Head Without Intravenous Contrast CLINICAL HISTORY: PAIN TECHNIQUE: Axial computed tomography images of the head/brain without intravenous contrast. CTDI is 70.38 mGy and DLP is 1326.60 mGy-cm. One or more of the following dose reduction techniques were used: automated exposure control, adjustment of the mA and/or kV according to patient size, use of iterative reconstruction technique. COMPARISON: No relevant prior studies available. FINDINGS: Brain: Unremarkable. No evidence of acute intracranial hemorrhage. No significant white matter disease. No edema. No mass effect or midline shift. Ventricles: Unremarkable. No ventriculomegaly. Bones/joints: Depressed fracture of the left zygomatic bone. Soft tissues: Soft tissue swelling in the right forehead. Nonspecific 4 x 3 mm subcutaneous calcification versus radiodense foreign body in the midline scalp at the vertex. Sinuses: Unremarkable as visualized. No acute sinusitis. Mastoid air cells: Unremarkable as visualized. No mastoid effusion. IMPRESSION: 1. Soft tissue swelling in the right forehead. 2. Depressed fracture of the left zygomatic bone. 3. Nonspecific 4 x 3 mm subcutaneous calcification versus radiodense foreign body in the midline scalp at the vertex. 4. No acute intracranial findings. No evidence of intracranial hemorrhage, mass effect, or midline shift.
[2018-01-08] MEDS ORDERED: Hydrogen Peroxide 473ml Bottle TOPIC ONE (17:59)
--- NOTE | 2018-01-08 17:59 | Diagnostic Imaging Report ---
EXAM: CT Maxillofacial Without Intravenous Contrast CLINICAL HISTORY: PAIN TECHNIQUE: Axial computed tomography images of the face without intravenous contrast. CTDI is 28.19 mGy and DLP is 568.06 mGy-cm. One or more of the following dose reduction techniques were used: automated exposure control, adjustment of the mA and/or kV according to patient size, use of iterative reconstruction technique. COMPARISON: No relevant prior studies available. FINDINGS: Bones/joints: Age indeterminate mildly depressed fracture of the left zygomatic bone. Mildly displaced comminuted nasal bone fracture. Soft tissues: Soft tissue swelling in the forehead and overlying the nose. Orbits: Unremarkable. Sinuses: 11 mm mucous retention cyst in the left axilla sinus and 7 mm mucous retention cyst in the right maxillary sinus. Remaining visualized paranasal sinuses are clear. No air-fluid levels. Nasal cavity/septum: Leftward nasal septal deviation. IMPRESSION: 1. Age-indeterminate mildly depressed fracture of the left zygomatic bone. 2. Mildly displaced comminuted nasal bone fracture. 3. Soft tissue swelling in the forehead and overlying the nose.
[2018-01-08] MEDS ORDERED: TYLENOL EXTRA500 MG ORAL (18:12)
[2018-01-08] MEDS ORDERED: AUGMENTIN 875-1 EAC1 ORAL (18:12)
[2018-01-08] MEDS ORDERED: BACITRACIN-P28.35 GM TP (18:12)
[2018-01-08] MEDS ORDERED: Tylenol #3 tab (300mg/30mg) ORAL ONE (18:30)
[2018-01-08 18:59] VITALS: BP 124/84
== END 2018-01-08 19:00 | disposition home or self-care (01) ==
LOC: EDBD 15:38 → EMR 16:38 → MERGE 16:38 → EMR 19:00
DX: S02.40FA Zygomatic fracture, left side, initial encounter for closed fracture (principal); S02.2XXA Fracture of nasal bones, initial encounter for closed fracture; S01.01XA Laceration without foreign body of scalp, initial encounter; Y04.2XXA Assault by strike against or bumped into by another person, initial encounter; Y92.9 Unspecified place or not applicable; M47.812 Spondylosis without myelopathy or radiculopathy, cervical region; Z23 Encounter for immunization
CPT/HCPCS: 70450; 70486; 72125; 90471; 90715; 96372; 99284

== ENCOUNTER 2018-05-09 16:37 | Emergency (ER) | payer OTHER ==
[~2018-05-09] VITALS: Ht 167.6 cm; Wt 63.5 kg
[~2018-05-09 16:37] MED LIST changes: +ACETAMINOPHEN325 M1 ORAL; +ATORVASTATIN CA20 MG ORAL; +AUGMENTIN 875-1 EAC1 ORAL; +BACITRACIN-P28.35 GM TP; +LEVETIRACETAM750 M1 ORAL; +METOPROLOL SUCC25 MG ORAL; +MINIPRESS1 MG PO; +TAMSULOSIN HCL0.4 MG ORAL; +TYLENOL EXTRA500 MG ORAL; +ZESTRIL2.5 MG ORAL
[2018-05-09 16:43] VITALS: BP 155/102
--- NOTE | 2018-05-09 18:13 | Emergency Room Report ---
History of Present Illness General Chief Complaint: Alcohol Intoxication Source: Patient Present Illness HPI This patient is brought in by EMS. Apparently he was causing a disruption at the laundry mat. He is intoxicated and other persons at the laundromat called EMS because he was creating a scene. The patient states that he does not know why he is here and that he was doing his laundry and he shouldn't have been forced to come here. He states he is worried about his who has been drinking all day. He has no other complaints. He denies pain. Allergies: Coded Allergies: No Known Allergies (Unverified , 09/22/17) Patient History Past Medical History: see triage record, HTN, CAD Past Surgical History: pacemaker Social History: Reports: alcohol use; Denies: smoking, drug use Reviewed Nursing Documentation: PMH: Agreed; PSxH: Agreed Nursing Documentation-PMH Past Medical History: No History, Except For Hx Cardiac Problems: Yes Hx Hypertension: Yes Hx Pacemaker: Yes - left chest Hx Cancer: No History Of Psychiatric Problem: Yes - PDSD Hx Neurological Problems: Yes Hx Seizures: Yes Hx Dizziness: Yes Hx Weakness: Yes Review of Systems All Other Systems: negative except mentioned in HPI Physical Exam Vital Signs Date Time Temp Pulse Resp B/P (MAP) Pulse Ox O2 Delivery O2 Flow Rate FiO2 05/09/18 16:32 98.0 110 18 155/102 99 Room Air 98.1 Sp02 EP Interpretation: reviewed, normal General Appearance: no apparent distress, alert, GCS 15, non-toxic Head: normocephalic, atraumatic Eyes: bilateral eye normal inspection, bilateral eye PERRL ENT: hearing grossly normal, normal pharynx, no angioedema, normal voice Neck: full range of motion, supple/symm/no masses Respiratory: chest non-tender, lungs clear, normal breath sounds, no respiratory distress, no retraction, no accessory muscle use, speaking full sentences Cardiovascular #1: regular rate, rhythm, no edema Gastrointestinal: normal bowel sounds, non tender, soft, non-distended, no guarding, no rebound Rectal: deferred Musculoskeletal: back normal, normal range of motion, non-tender Neurologic: alert, responsive, motor strength/tone normal, sensory intact, speech normal, other - ataxia, grossly normal Psychiatric: memory normal, mood/affect normal, no suicidal/homicidal ideation Skin: normal color, no rash, warm/dry, well hydrated Medical Decision Making Diagnostic Impression: Primary Impression: Acute alcoholic intoxication ER Course This patient presents with acute alcoholic intoxication. There is no evidence of trauma or injury on physical examination of this patient. The patient was allowed to sober up in the emergency department and was able to ambulate and articulate desire to go home. The patient was clinically sober at the time of discharge. No acute emergency medical condition is identified. The patient was educated on the dangers of alcohol intoxication and abuse. The patient was given a list of the local rehabilitation clinics. Laboratory Tests Test 05/09/18 17:42 Serum Alcohol 295 mg/dL Last Vital Signs Date Time Temp Pulse Resp B/P (MAP) Pulse Ox O2 Delivery O2 Flow Rate FiO2 05/09/18 16:43 98.1 18 155/102 99 Room Air 98.1 05/09/18 16:32 110 Status: improved Disposition: HOME, SELF-CARE Condition: Improved Patient Instructions: Alcohol Intoxication, [id number] Ayaka Witt DO May 09, 2018 18:12
[2018-05-09 18:27] VITALS: BP 117/84
[2018-05-09 19:38] VITALS: BP 117/84
== END 2018-05-09 19:38 | disposition home or self-care (01) ==
LOC: EDBD 16:37 → EMR 17:18
DX: F10.129 Alcohol abuse with intoxication, unspecified (principal); I10 Essential (primary) hypertension
CPT/HCPCS: 36415; 99283; G0480; 80329

== ENCOUNTER 2018-06-30 14:31 | Inpatient (IN) | payer MEDICARE, OTHER ==
[~2018-06-30] VITALS: Ht 167.6 cm; Wt 71.2 kg
[2018-06-30 14:40] VITALS: BP 106/73
[2018-06-30 15:03] LABS: BASOPHILS % (AUTO) 1.3 % (0.0-2.0); EOSINOPHILS % (AUTO) 0.4 % (0.0-3.0); HEMATOCRIT 44.9 % (42.0-52.0); HEMOGLOBIN 14.8 G/DL (14.2-18.0); LYMPHOCYTES % (AUTO) 18.4 % (20.0-45.0); MEAN CORPUSCULAR VOLUME 93 FL (80-99); MONOCYTES % (AUTO) 5.9 % (1.0-10.0); PLATELET COUNT 184 K/UL (150-450); RED BLOOD COUNT 4.81 M/UL (4.70-6.10); RED CELL DISTRIBUTION WIDTH 12.8 % (11.6-14.8); WHITE BLOOD COUNT 9.8 K/UL (4.8-10.8)
[2018-06-30 15:28] LABS: ANION GAP 17 mmol/L (5-15); BLOOD UREA NITROGEN 21 mg/dL (7-18); CALCIUM 7.9 MG/DL (8.5-10.1); CARBON DIOXIDE 16 MMOL/L (21-32); CHLORIDE 108 MMOL/L (98-107); CREATININE 1.2 MG/DL (0.55-1.30); POTASSIUM 3.2 MMOL/L (3.5-5.1); SODIUM 141 MMOL/L (136-145)
[2018-06-30 15:33] LABS: ALANINE AMINOTRANSFERASE 54 U/L (12-78); ALBUMIN 3.3 G/DL (3.4-5.0); ALBUMIN/GLOBULIN RATIO 0.9 (1.0-2.7); ALKALINE PHOSPHATASE 88 U/L (46-116); ASPARTATE AMINO TRANSFERASE 104 U/L (15-37); BILIRUBIN,TOTAL 0.5 MG/DL (0.2-1.0)
[2018-06-30 16:46] LABS: APPEARANCE,URINE CLEAR; BILIRUBIN, URINE NEGATIVE (NEGATIVE); COLOR,URINE PALE YELLOW; GLUCOSE, URINE (UA) 1+ (NEGATIVE); KETONES,URINE 3+ (NEGATIVE); LEUKOCYTE ESTERASE ,URINE NEGATIVE (NEGATIVE); NITRITE,URINE NEGATIVE (NEGATIVE); PH,URINE 5 (4.5-8.0); PROTEIN,URINE 1+ (NEGATIVE); UROBILINOGEN,URINE NORMAL MG/DL (0.0-1.0)
[2018-06-30 17:03] VITALS: BP 110/83
--- NOTE | 2018-06-30 18:36 | Emergency Room Report ---
History of Present Illness General Chief Complaint: Abnormal Labs Source: Patient Present Illness HPI This patient is brought in by EMS. He complains of generalized weakness and fatigue. EMS report that on their evaluation he had a blood sugar of 40. He was also very lethargic. He was given D50 prior to arrival. The patient states he did drink alcohol this morning. He states he does have a history of alcohol abuse. He denies recent illness. He denies fever or chills. He denies cough or congestion. He denies abdominal pain. He has no other complaints. Allergies: Coded Allergies: No Known Allergies (Unverified , 09/22/17) Patient History Past Medical History: see triage record, seizures Past Surgical History: pacemaker Social History: Reports: alcohol use; Denies: smoking, drug use Reviewed Nursing Documentation: PMH: Agreed; PSxH: Agreed Nursing Documentation-PMH Hx Cardiac Problems: No Hx Hypertension: No Hx Pacemaker: No Hx Asthma: No Hx COPD: No Hx Diabetes: No Hx Cancer: No Hx Gastrointestinal Problems: No Hx Dialysis: No History Of Psychiatric Problem: No Hx Neurological Problems: No Hx Cerebrovascular Accident: No Hx Seizures: Yes Review of Systems All Other Systems: negative except mentioned in HPI Physical Exam Vital Signs Date Time Temp Pulse Resp B/P (MAP) Pulse Ox O2 Delivery O2 Flow Rate FiO2 06/30/18 14:20 98.8 90 16 80/50 94 Room Air Sp02 EP Interpretation: reviewed, normal General Appearance: no apparent distress, alert, GCS 15, non-toxic, other - sleepy but easily arousable. Head: normocephalic, atraumatic Eyes: bilateral eye normal inspection, bilateral eye PERRL ENT: hearing grossly normal, normal pharynx, no angioedema, normal voice Neck: full range of motion, supple/symm/no masses Respiratory: chest non-tender, lungs clear, normal breath sounds, no respiratory distress, no retraction, no accessory muscle use, speaking full sentences Cardiovascular #1: regular rate, rhythm, no edema Gastrointestinal: normal bowel sounds, non tender, soft, non-distended, no guarding, no rebound Rectal: deferred Musculoskeletal: back normal, normal range of motion, non-tender Neurologic: alert, oriented x3, responsive, motor strength/tone normal, sensory intact, speech normal Psychiatric: judgement/insight normal, memory normal, mood/affect normal, no suicidal/homicidal ideation Skin: normal color, no rash, warm/dry, well hydrated Medical Decision Making Diagnostic Impression: Primary Impression: Hypoglycemia Additional Impression: ETOH abuse ER Course This patient presents with hypoglycemia. Likely this is secondary to alcohol abuse and poor nutrition. The patient does not have a history of diabetes. Initially the patient had a normal blood sugar after receiving D50 by EMS. During the patient's ED course he slowly became hypoglycemic again. He is given a high carbohydrate meal. He is admitted for hypoglycemia and further monitoring. Laboratory Tests Test 06/30/18 14:47 06/30/18 16:30 White Blood Count 9.8 K/UL (4.8-10.8) Red Blood Count 4.81 M/UL (4.70-6.10) Hemoglobin 14.8 G/DL (14.2-18.0) Hematocrit 44.9 % (42.0-52.0) Mean Corpuscular Volume 93 FL (80-99) Mean Corpuscular Hemoglobin 30.7 PG (27.0-31.0) Mean Corpuscular Hemoglobin Concent 33.0 G/DL (32.0-36.0) Red Cell Distribution Width 12.8 % (11.6-14.8) Platelet Count 184 K/UL (150-450) Mean Platelet Volume 7.1 FL (6.5-10.1) Neutrophils (%) (Auto) 74.0 % (45.0-75.0) Lymphocytes (%) (Auto) 18.4 % (20.0-45.0) L Monocytes (%) (Auto) 5.9 % (1.0-10.0) Eosinophils (%) (Auto) 0.4 % (0.0-3.0) Basophils (%) (Auto) 1.3 % (0.0-2.0) Sodium Level 141 MMOL/L (136-145) Potassium Level 3.2 MMOL/L (3.5-5.1) L Chloride Level 108 MMOL/L (98-107) H Carbon Dioxide Level 16 MMOL/L (21-32) L Anion Gap 17 mmol/L (5-15) H Blood Urea Nitrogen 21 mg/dL (7-18) H Creatinine 1.2 MG/DL (0.55-1.30) Estimate Glomerular Filtration Rate > 60 mL/min (>60) Glucose Level 159 MG/DL (74-106) H Calcium Level 7.9 MG/DL (8.5-10.1) L Magnesium Level 1.9 MG/DL (1.8-2.4) Total Bilirubin 0.5 MG/DL (0.2-1.0) Aspartate Amino Transferase (AST) 104 U/L (15-37) H Alanine Aminotransferase (ALT) 54 U/L (12-78) Alkaline Phosphatase 88 U/L (46-116) Total Protein 6.8 G/DL (6.4-8.2) Albumin 3.3 G/DL (3.4-5.0) L Globulin 3.5 g/dL Albumin/Globulin Ratio 0.9 (1.0-2.7) L Acetone Level Negative (NEGATIVE) Urine Color Pale yellow Urine Appearance Clear Urine pH 5 (4.5-8.0) Urine Specific [place] 1.020 (1.005-1.035) Urine Protein 1+ (NEGATIVE) H Urine Glucose (UA) 1+ (NEGATIVE) H Urine Ketones 3+ (NEGATIVE) H Urine Blood Negative (NEGATIVE) Urine Nitrite Negative (NEGATIVE) Urine Bilirubin Negative (NEGATIVE) Urine Urobilinogen Normal MG/DL (0.0-1.0) Urine Leukocyte Esterase Negative (NEGATIVE) Urine RBC 0-2 /HPF (0 - 0) H Urine WBC 0-2 /HPF (0 - 0) Urine Squamous Epithelial Cells None /LPF (NONE/OCC) Urine Amorphous Sediment Few /LPF (NONE) H Urine Bacteria None /HPF (NONE) Serum Alcohol 184 mg/dL EKG Diagnostic Results Rate: normal Rhythm: other - Paced ST Segments: no acute changes Rhythm Strip Diag. Results EP Interpretation: yes Rate: 60 Rhythm: no PVC's, no ectopy, other - Paced Last Vital Signs Date Time Temp Pulse Resp B/P (MAP) Pulse Ox O2 Delivery O2 Flow Rate FiO2 06/30/18 17:03 98.4 71 17 110/83 100 Room Air Status: improved Disposition: ADMITTED INPATIENT Condition: Serious Referrals: NOT CHOSEN IPA/,REFERRING (PCP) Ayaka Witt DO Jun 30, 2018 18:36
[2018-06-30 19:00] VITALS: BP 127/89
[2018-06-30] MEDS ORDERED: Milk of Magnesia 30ml Ud ORAL PRN (20:30)
[2018-06-30] MEDS ORDERED: Zolpidem 5mg tab ORAL PRN (20:30)
[2018-06-30] MEDS ORDERED: Tamsulosin 0.4mg cap ORAL SCH (21:00)
[2018-06-30] MEDS ORDERED: Atorvastatin 20mg tab ORAL SCH (21:00)
[2018-06-30] MEDS: Heparin 5000 units/ml inj SUBQ SCH (21:42)
[2018-06-30] MEDS: D5NS 1,000 ML IV SCH (21:42)
[2018-07-01] VITALS: BP 142/92
[2018-07-01 04:00] VITALS: BP 146/97
[2018-07-01 06:51] LABS: BASOPHILS % (AUTO) 1.1 % (0.0-2.0); EOSINOPHILS % (AUTO) 0.9 % (0.0-3.0); HEMOGLOBIN 13.1 G/DL (14.2-18.0); LYMPHOCYTES % (AUTO) 31.2 % (20.0-45.0); MEAN CORPUSCULAR VOLUME 90 FL (80-99); MONOCYTES % (AUTO) 7.6 % (1.0-10.0); NEUTROPHILS % (AUTO) 59.3 % (45.0-75.0); PLATELET COUNT 166 K/UL (150-450); RED CELL DISTRIBUTION WIDTH 11.9 % (11.6-14.8); WHITE BLOOD COUNT 7.4 K/UL (4.8-10.8)
[2018-07-01 07:08] LABS: ANION GAP 7 mmol/L (5-15); BLOOD UREA NITROGEN 17 mg/dL (7-18); CARBON DIOXIDE 27 MMOL/L (21-32); CHLORIDE 107 MMOL/L (98-107); CREATININE 1.1 MG/DL (0.55-1.30); POTASSIUM 3.4 MMOL/L (3.5-5.1); SODIUM 141 MMOL/L (136-145)
[2018-07-01] MEDS: D5NS 1,000 ML IV SCH (07:30)
[2018-07-01 07:59] VITALS: BP 140/92
[2018-07-01 08:17] VITALS: BP 140/92
[2018-07-01] MEDS: Heparin 5000 units/ml inj SUBQ SCH (08:17)
[2018-07-01] MEDS ORDERED: Lisinopril 2.5mg tab ORAL SCH (09:00)
[2018-07-01] MEDS ORDERED: Metoprolol Succinate XL 25mg tab ORAL SCH (09:00)
--- NOTE | 2018-07-01 10:23 | History & Physical ---
History and Physical History & Physicial HISTORY OF PRESENT ILLNESS: 67-year-old male who is admitted with low blood sugars. The patient admits to alcohol use. The patient also had alcohol-related seizures. The patient did have a history of hepatitis, pancreatitis in the past. The patient now admitted for further care and management and overnight management. The patient did have a CT of the head and CT of the abdomen in the past. The patient's care discussed and reviewed with . PAST MEDICAL HISTORY: Notable for the above, notable for alcohol use MEDICATIONS: Reviewed. ALLERGIES: Reviewed. SOCIAL HISTORY: known alcohol use. The patient is and has DPOA REVIEW OF SYSTEMS: All 10 points reviewed and otherwise negative. PHYSICAL EXAMINATION: GENERAL: A well-developed male, NAD HEENT: Negative. Extraocular movements are grossly intact. NECK: Supple. carotids 2 + LUNGS: moderate air entry. Minimal rhonchi. CARDIAC: Regular rate and rhythm without MRG ABDOMEN: Diffusely tender no distention. NABS EXTREMITIES: No cyanosis or clubbing. No edema. NEUROLOGICAL: Grossly nonfocal. No significant tremor. Labs Test 06/30/18 14:47 06/30/18 16:30 07/01/18 06:10 White Blood Count 9.8 K/UL (4.8-10.8) 7.4 K/UL (4.8-10.8) Red Blood Count 4.81 M/UL (4.70-6.10) 4.20 M/UL (4.70-6.10) Hemoglobin 14.8 G/DL (14.2-18.0) 13.1 G/DL (14.2-18.0) Hematocrit 44.9 % (42.0-52.0) 38.0 % (42.0-52.0) Mean Corpuscular Volume 93 FL (80-99) 90 FL (80-99) Mean Corpuscular Hemoglobin 30.7 PG (27.0-31.0) 31.2 PG (27.0-31.0) Mean Corpuscular Hemoglobin Concent 33.0 G/DL (32.0-36.0) 34.5 G/DL (32.0-36.0) Red Cell Distribution Width 12.8 % (11.6-14.8) 11.9 % (11.6-14.8) Platelet Count 184 K/UL (150-450) 166 K/UL (150-450) Mean Platelet Volume 7.1 FL (6.5-10.1) 6.7 FL (6.5-10.1) Neutrophils (%) (Auto) 74.0 % (45.0-75.0) 59.3 % (45.0-75.0) Lymphocytes (%) (Auto) 18.4 % (20.0-45.0) 31.2 % (20.0-45.0) Monocytes (%) (Auto) 5.9 % (1.0-10.0) 7.6 % (1.0-10.0) Eosinophils (%) (Auto) 0.4 % (0.0-3.0) 0.9 % (0.0-3.0) Basophils (%) (Auto) 1.3 % (0.0-2.0) 1.1 % (0.0-2.0) Sodium Level 141 MMOL/L (136-145) 141 MMOL/L (136-145) Potassium Level 3.2 MMOL/L (3.5-5.1) 3.4 MMOL/L (3.5-5.1) Chloride Level 108 MMOL/L (98-107) 107 MMOL/L (98-107) Carbon Dioxide Level 16 MMOL/L (21-32) 27 MMOL/L (21-32) Anion Gap 17 mmol/L (5-15) 7 mmol/L (5-15) Blood Urea Nitrogen 21 mg/dL (7-18) 17 mg/dL (7-18) Creatinine 1.2 MG/DL (0.55-1.30) 1.1 MG/DL (0.55-1.30) Estimat Glomerular Filtration Rate > 60 mL/min (>60) > 60 mL/min (>60) Glucose Level 159 MG/DL (74-106) 99 MG/DL (74-106) Calcium Level 7.9 MG/DL (8.5-10.1) 8.0 MG/DL (8.5-10.1) Magnesium Level 1.9 MG/DL (1.8-2.4) Total Bilirubin 0.5 MG/DL (0.2-1.0) Aspartate Amino Transf (AST/SGOT) 104 U/L (15-37) Alanine Aminotransferase (ALT/SGPT) 54 U/L (12-78) Alkaline Phosphatase 88 U/L (46-116) Total Protein 6.8 G/DL (6.4-8.2) Albumin 3.3 G/DL (3.4-5.0) Globulin 3.5 g/dL Albumin/Globulin Ratio 0.9 (1.0-2.7) Acetone Level Negative (NEGATIVE) Urine Color Pale yellow Urine Appearance Clear Urine pH 5 (4.5-8.0) Urine Specific [place] 1.020 (1.005-1.035) Urine Protein 1+ (NEGATIVE) Urine Glucose (UA) 1+ (NEGATIVE) Urine Ketones 3+ (NEGATIVE) Urine Blood Negative (NEGATIVE) Urine Nitrite Negative (NEGATIVE) Urine Bilirubin Negative (NEGATIVE) Urine Urobilinogen Normal MG/DL (0.0-1.0) Urine Leukocyte Esterase Negative (NEGATIVE) Urine RBC 0-2 /HPF (0 - 0) Urine WBC 0-2 /HPF (0 - 0) Urine Squamous Epithelial Cells None /LPF (NONE/OCC) Urine Amorphous Sediment Few /LPF (NONE) Urine Bacteria None /HPF (NONE) Serum Alcohol 184 mg/dL IMPRESSION hypoglycemia alcohol related seizures PTSD renal stones mild protein calorie malnutrition PLAN d/w in detail stable for discharge notes that he may have a lung mass and wants cxr discussed need for MRI and bone density scan- I explained to her [facility]; she is aware and will as well, CXR if abnormal would need to [facility] the [facility] aware of all results calcium will correct with low albumin Alfonzo Rebollar MD Jul 01, 2018 10:23
--- NOTE | 2018-07-01 10:25 | General Progress Note ---
Subjective Allergies: Coded Allergies: No Known Allergies (Unverified , 09/22/17) Objective Last 24 Hour Vital Signs Date Time Temp Pulse Resp B/P (MAP) Pulse Ox O2 Delivery O2 Flow Rate FiO2 07/01/18 09:12 Room Air 07/01/18 08:17 77 140/92 07/01/18 08:16 140/92 07/01/18 07:59 98.7 77 19 140/92 (108) 98 07/01/18 04:00 68 07/01/18 04:00 98.5 75 20 146/97 (113) 98 07/01/18 00:00 69 07/01/18 00:00 98.1 84 20 142/92 (109) 97 06/30/18 22:19 Room Air 06/30/18 20:00 92 06/30/18 19:44 98.5 91 16 110/70 98 Room Air 06/30/18 19:00 98.1 91 20 127/89 (102) 97 06/30/18 17:03 98.4 71 17 110/83 100 Room Air 06/30/18 14:40 98.8 91 14 106/73 100 Room Air 06/30/18 14:20 98.8 90 16 80/50 94 Room Air Intake and Output 06/30/18 07/01/18 19:00 07:00 Intake Total 1000 ml 830 ml Output Total 0 ml Balance 1000 ml 830 ml Intake Oral 0 ml IV Total 1000 ml 830 ml Output Urine Total 0 ml # Voids 3 Laboratory Tests 06/30/18 14:47: White Blood Count 9.8, Red Blood Count 4.81, Hemoglobin 14.8, Hematocrit 44.9, Mean Corpuscular Volume 93, Mean Corpuscular Hemoglobin 30.7, Mean Corpuscular Hemoglobin Concent 33.0, Red Cell Distribution Width 12.8, Platelet Count 184, Mean Platelet Volume 7.1, Neutrophils (%) (Auto) 74.0, Lymphocytes (%) (Auto) 18.4L, Monocytes (%) (Auto) 5.9, Eosinophils (%) (Auto) 0.4, Basophils (%) (Auto ) 1.3, Sodium Level 141, Potassium Level 3.2L, Chloride Level 108H, Carbon Dioxide Level 16L, Anion Gap 17H, Blood Urea Nitrogen 21H, Creatinine 1.2, Estimat Glomerular Filtration Rate > 60, Glucose Level 159H, Calcium Level 7.9L , Magnesium Level 1.9, Total Bilirubin 0.5, Aspartate Amino Transf (AST/SGOT) 104H, Alanine Aminotransferase (ALT/SGPT) 54, Alkaline Phosphatase 88, Total Protein 6.8, Albumin 3.3L, Globulin 3.5, Albumin/Globulin Ratio 0.9L, Acetone Level Negative 06/30/18 16:30: Urine Color Pale yellow, Urine Appearance Clear, Urine pH 5, Urine Specific [place] 1.020, Urine Protein 1+H, Urine Glucose (UA) 1+H, Urine Ketones 3+H, Urine Blood Negative, Urine Nitrite Negative, Urine Bilirubin Negative, Urine Urobilinogen Normal, Urine Leukocyte Esterase Negative, Urine RBC 0-2H, Urine WBC 0-2, Urine Squamous Epithelial Cells None, Urine Amorphous Sediment FewH, Urine Bacteria None, Serum Alcohol 184 07/01/18 06:10: White Blood Count 7.4, Red Blood Count 4.20L, Hemoglobin 13.1L, Hematocrit 38.0L , Mean Corpuscular Volume 90, Mean Corpuscular Hemoglobin 31.2H, Mean Corpuscular Hemoglobin Concent 34.5, Red Cell Distribution Width 11.9, Platelet Count 166, Mean Platelet Volume 6.7, Neutrophils (%) (Auto) 59.3, Lymphocytes (% ) (Auto) 31.2, Monocytes (%) (Auto) 7.6, Eosinophils (%) (Auto) 0.9, Basophils ( %) (Auto) 1.1, Sodium Level 141, Potassium Level 3.4L, Chloride Level 107, Carbon Dioxide Level 27, Anion Gap 7, Blood Urea Nitrogen 17, Creatinine 1.1, Estimat Glomerular Filtration Rate > 60, Glucose Level 99, Calcium Level 8.0L Height (Feet): 5 Height (Inches): 6.00 Weight (Pounds): 157 Alfonzo Rebollar MD Jul 01, 2018 10:24
--- NOTE | 2018-07-01 11:33 | Diagnostic Imaging Report ---
Indication: Chest pain Comparison: 12/27/2017 A single view chest radiograph was obtained. Findings: Cardiomediastinal appearance is within normal limits for age. Pacemaker noted on the left. The lungs are clear. Pulmonary vascularity is appropriate. The diaphragmatic contour is smooth and costophrenic angles are sharp. No pleural effusions are identified. The bones are unremarkable. Impression: No acute findings
[2018-07-01] MEDS ORDERED: D5NS 1000ml IV ONE (14:29)
--- NOTE | 2018-07-02 15:11 | Cardiology Report ---
APPROVED REPORT EKG Measurement Heart [id number] Atrial paced, ventricular sensed rhythm. Electronic pacemaker Nonspecific T wave abnormality Abnormal ECG
--- NOTE | 2018-07-04 09:11 | Discharge Summary ---
Discharge Summary Discharge Summary _ DATE OF ADMISSION: 06/30/2018 DATE OF DISCHARGE: 07/01/2018 REASON FOR ADMISSION: 67 years old male with past medical history of alcohol abuse , alcohol related seizure disorder, history of hepatitis and pancreatitis , was brought by paramedics due to generalized weakness and fatigue. Patient admitted to drinking alcohol earlier that morning. Paramedics found blood sugar in 40s range. Ampule of D50 was given en route. Blood sugar improved. Upon evaluation vital signs revealed low blood pressure 80/50. Laboratory workup revealed serum alcohol leve -184. AST 104 ALT 54. Potassium 3.2. EKG revealed paced rhythm. Patient had CT of the head and CT of the abdomen done in the past. Patient admitted with diagnoses of hypoglycemia, alcohol related seizure, ETOH abuse. HOSPITAL COURSE: Patient admitted to telemetry floor. EKG continued to show paced rhythm, no acute changes. Patient was given 1 L of fluid. Blood pressure stabilized. Patient started on home medication, including antihypertensive and statin. Potassium was replaced. DVT and GI prophylaxis provided. Blood sugar was closely monitored, remained stable. Hospital management was discussed with with patient's . There was a concern of possible lung mass verbalized by patient's . Chest x-ray revealed no acute cardiopulmonary pathology. Further testing as needed to be done as outpatient per [place] doctor recommendations. No seizure activity while in the hospital. Patient was stable for discharge home. Due to rapid and unexpected improvement in patient's condition, patient was discharged in one day. FINAL DIAGNOSES: Hypoglycemia likely due to ETOH intake Alcohol related seizure PTSD Renal stone Mild protein calorie malnutrition ETOH abuse DISCHARGE MEDICATIONS: See Medication Reconciliation list. DISCHARGE INSTRUCTIONS: Patient was discharged home. Outpatient follow-up with [place] doctor in 1 week I have been assigned to dictate discharge summary for this account. I was not involved in the patient's management. Mercedes Castillo NP Jul 04, 2018 09:11
== END 2018-07-01 14:30 | disposition home or self-care (01) | DRG 644 ==
LOC: EDBD 14:31 → EDUNIT# 14:31 → EMR 17:40 → 2E 17:47 → EDBEDREQ 17:55
DX: E16.1 Other hypoglycemia (principal); F10.188 Alcohol abuse with other alcohol-induced disorder; E44.1 Mild protein-calorie malnutrition; G40.89 Other seizures; F43.10 Post-traumatic stress disorder, unspecified; N20.0 Calculus of kidney
CPT/HCPCS: 36415; 71045; 80048; 80053; 80329; 81003; 82009; 82962; 83735; 85025; 93005; 96360; 99285; J8499

== ENCOUNTER 2018-10-24 12:08 | Inpatient (IN) | payer MEDICARE, OTHER ==
[~2018-10-24] VITALS: Ht 177.8 cm; Wt 65.8 kg
[2018-10-24 12:20] VITALS: BP 122/80
--- NOTE | 2018-10-24 12:20 | NUR ---
ED Nurse Note: Pt brought in by ambulance from home presents to ED with seizure activity x3 today. Pt c/o headache but denies any other symptoms. Pt is currently taking Dilantin at home. Pt is AAO x4, follows commands with no respiratory distress. Sinus tach on the monitor 102. Seizure precautions are implemented. (See Intervention)
[2018-10-24] MEDS ORDERED: levETIRAcetam 1,000mg/NS100ml 100 ML IVPB ONE (12:45)
--- NOTE | 2018-10-24 13:30 | Diagnostic Imaging Report ---
Indication: Seizure Technique: Contiguous 5 mm thick transaxial imaging of the head obtained in a Siemens Sensation [address] scanner. Soft tissue and bone windows generated. Automatic Exposure Control was utilized. Total Dose length Product (DLP): 1390.[address] Dose Index Volume (CTDIvol): 70.38 mGy Comparison: 12/27/2017 Findings: There is mild prominence of the ventricles, basal cisterns, and cerebral sulci consistent with atrophy. Mild, nonspecific, white matter hypoattenuation is noted throughout the brain consistent with chronic small vessel disease. There is no midline shift, edema, acute hemorrhage, mass effect, or abnormal extra-axial fluid collections. There is an old left zygomatic arch fracture. There is a swelling in the right posterior scalp presumably contusion injury. Impression: No acute intracranial bleed, mass effect or edema. Mild atrophy of the brain. Nonspecific white matter hypoattenuation probably due to chronic small vessel disease. Right posterior scalp contusion The CT scanner at [facility] is accredited by the [employer] and the scans are performed using dose optimization techniques as appropriate to a performed exam including Automatic Exposure control.
[2018-10-24] MEDS ORDERED: Morphine Sulfate 4mg/ml Inj (IV USE ONLY) IVP ONE (13:45)
--- NOTE | 2018-10-24 14:00 | NUR ---
ED Nurse Note: Pt is calmer and more relaxed at this time. VSS.
[2018-10-24 14:04] LABS: BASOPHILS % (AUTO) 0.9 % (0.0-2.0); EOSINOPHILS % (AUTO) 0.2 % (0.0-3.0); HEMATOCRIT 41.8 % (42.0-52.0); HEMOGLOBIN 13.8 G/DL (14.2-18.0); LYMPHOCYTES % (AUTO) 9.7 % (20.0-45.0); MEAN CORPUSCULAR VOLUME 97 FL (80-99); MONOCYTES % (AUTO) 8.1 % (1.0-10.0); PLATELET COUNT 136 K/UL (150-450); RED CELL DISTRIBUTION WIDTH 12.2 % (11.6-14.8); WHITE BLOOD COUNT 12.9 K/UL (4.8-10.8)
[2018-10-24 14:16] LABS: ANION GAP 15 mmol/L (5-15); BLOOD UREA NITROGEN 12 mg/dL (7-18); CALCIUM 9.4 MG/DL (8.5-10.1); CARBON DIOXIDE 21 MMOL/L (21-32); CHLORIDE 105 MMOL/L (98-107); CREATININE 1.2 MG/DL (0.55-1.30); POTASSIUM 4.1 MMOL/L (3.5-5.1); SODIUM 141 MMOL/L (136-145)
[2018-10-24 14:20] VITALS: BP 133/76
[2018-10-24 14:31] LABS: ALANINE AMINOTRANSFERASE 37 U/L (12-78); ALBUMIN 4.2 G/DL (3.4-5.0); ALBUMIN/GLOBULIN RATIO 1.4 (1.0-2.7); ALKALINE PHOSPHATASE 80 U/L (46-116); ASPARTATE AMINO TRANSFERASE 38 U/L (15-37); BILIRUBIN,TOTAL 0.6 MG/DL (0.2-1.0); CKMB 2.9 NG/ML (0.0-3.6); CREATINE KINASE 318 U/L (26-308)
--- NOTE | 2018-10-24 14:43 | Emergency Room Report ---
History of Present Illness General Chief Complaint: Seizure Source: Patient, EMS Present Illness HPI Patient presents with reports of seizure activity patient has had reportedly over 3 seizures over the past several hours Patient has a history of seizure disorder however Cannot recall his medication Paramedics reported questionably Dilantin however on previous medications there is a list of Keppra Patient complains of a headache otherwise denies any focal weakness Denies any chest pain or shortness of breath patient has had Recent seizures reports almost every month Allergies: Coded Allergies: No Known Allergies (Unverified , 09/22/17) Patient History Past Medical History: see triage record Pertinent Family History: none Reviewed Nursing Documentation: PMH: Agreed; PSxH: Agreed Nursing Documentation-PMH Hx Cardiac Problems: Yes - ACS Hx Hypertension: Yes Hx Pacemaker: No Hx Asthma: No Hx COPD: No Hx Diabetes: No Hx Cancer: No Hx Gastrointestinal Problems: No Hx Dialysis: No Hx Neurological Problems: No Hx Cerebrovascular Accident: No Hx Seizures: Yes Hx Dizziness: Yes Hx Weakness: Yes Review of Systems All Other Systems: negative except mentioned in HPI Physical Exam Vital Signs Date Time Temp Pulse Resp B/P (MAP) Pulse Ox O2 Delivery O2 Flow Rate FiO2 10/24/18 12:10 98.4 120 18 133/78 97 10/24/18 12:20 Room Air Sp02 EP Interpretation: reviewed, normal General Appearance: well appearing, no apparent distress Head: normocephalic, atraumatic Eyes: bilateral eye PERRL, bilateral eye EOMI ENT: hearing grossly normal, normal pharynx, TMs + canals normal, uvula midline Neck: full range of motion, supple, no meningismus, no bony tend Respiratory: lungs clear, normal breath sounds, no rhonchi, no respiratory distress, no retraction, no accessory muscle use Cardiovascular #1: normal peripheral pulses, regular rate, rhythm, no edema, no gallop, no JVD, no murmur Gastrointestinal: normal bowel sounds, non tender, soft, no mass, no organomegaly, non-distended, no guarding, no hernia, no pulsatile mass, no rebound Genitourinary: no CVA tenderness Musculoskeletal: normal inspection Neurologic: oriented x3, responsive, nutrient management specialist III-XII nml as tested, motor strength/ tone normal, sensory intact Psychiatric: mood/affect normal Skin: normal color, no rash, warm/dry, palpation normal Lymphatic: normal inspection, no adenopathy Medical Decision Making Diagnostic Impression: Primary Impression: Epileptic seizure, generalized ER Course Given the patient's multiple seizure activity extensive workup is initiated patient also loaded with Keppra Later on with description of possible Dilantin intake a Dilantin level is also obtained Patient requiring further inpatient care Patient remains seizure-free throughout his stay At this time was further medically stabilized for transfer to contracted facility Labs Test 10/24/18 13:40 White Blood Count 12.9 K/UL (4.8-10.8) Red Blood Count 4.30 M/UL (4.70-6.10) Hemoglobin 13.8 G/DL (14.2-18.0) Hematocrit 41.8 % (42.0-52.0) Mean Corpuscular Volume 97 FL (80-99) Mean Corpuscular Hemoglobin 32.1 PG (27.0-31.0) Mean Corpuscular Hemoglobin Concent 33.0 G/DL (32.0-36.0) Red Cell Distribution Width 12.2 % (11.6-14.8) Platelet Count 136 K/UL (150-450) Mean Platelet Volume 6.3 FL (6.5-10.1) Neutrophils (%) (Auto) 81.0 % (45.0-75.0) Lymphocytes (%) (Auto) 9.7 % (20.0-45.0) Monocytes (%) (Auto) 8.1 % (1.0-10.0) Eosinophils (%) (Auto) 0.2 % (0.0-3.0) Basophils (%) (Auto) 0.9 % (0.0-2.0) Sodium Level 141 MMOL/L (136-145) Potassium Level 4.1 MMOL/L (3.5-5.1) Chloride Level 105 MMOL/L (98-107) Carbon Dioxide Level 21 MMOL/L (21-32) Anion Gap 15 mmol/L (5-15) Blood Urea Nitrogen 12 mg/dL (7-18) Creatinine 1.2 MG/DL (0.55-1.30) Estimat Glomerular Filtration Rate > 60 mL/min (>60) Glucose Level 100 MG/DL (74-106) Calcium Level 9.4 MG/DL (8.5-10.1) Total Bilirubin 0.6 MG/DL (0.2-1.0) Aspartate Amino Transf (AST/SGOT) 38 U/L (15-37) Alanine Aminotransferase (ALT/SGPT) 37 U/L (12-78) Alkaline Phosphatase 80 U/L (46-116) Total Creatine Kinase 318 U/L (26-308) Creatine Kinase MB 2.9 NG/ML (0.0-3.6) Creatine Kinase MB Relative Index 0.9 Troponin I 0.000 ng/mL (0.000-0.056) Total Protein 7.3 G/DL (6.4-8.2) Albumin 4.2 G/DL (3.4-5.0) Globulin 3.1 g/dL Albumin/Globulin Ratio 1.4 (1.0-2.7) Rhythm Strip Diag. Results EP Interpretation: yes Rate: 70 Rhythm: NSR, no PVC's, no ectopy Chest X-Ray Diagnostic Results Chest X-Ray Diagnostic Results : Chest X-Ray Ordered: Yes # of Views/Limited/Complete: 1 View Indication: Chest Pain EP Interpretation: Yes Interpretation: no consolidation, no effusion, no pneumothorax Impression: No acute disease Electronically Signed by: Loly Paige DO CT/MRI/US Diagnostic Results CT/MRI/US Diagnostic Results : Impression CT headImpression: No acute intracranial bleed, mass effect or edema. Mild atrophy of the brain. Nonspecific white matter hypoattenuation probably due to chronic small vessel disease. Right posterior scalp contusion Last Vital Signs Date Time Temp Pulse Resp B/P (MAP) Pulse Ox O2 Delivery O2 Flow Rate FiO2 10/24/18 12:20 98.7 102 20 122/80 97 Room Air Status: improved Disposition: XFER SHT-TRM HOSP Condition: Serious Loly Paige DO Oct 24, 2018 14:43
--- NOTE | 2018-10-24 15:00 | NUR ---
ED Nurse Note: Called lab for dilantin level.
--- NOTE | 2018-10-24 15:25 | Diagnostic Imaging Report ---
Indication: Chest pain Comparison: July 01, 2018 A single view chest radiograph was obtained. Findings: Cardiomediastinal appearance is within normal limits for age. There is a pacemaker in the left anterior chest wall noted. The lungs are clear. Pulmonary vascularity is appropriate. The diaphragmatic contour is smooth and costophrenic angles are sharp. No pleural effusions are identified. The bones are unremarkable. Impression: No acute findings
--- NOTE | 2018-10-24 15:53 | NUR ---
ED Nurse Note: Dr Salcido notified of Dilantin level of 1.0
[2018-10-24 16:30] VITALS: BP 137/93
--- NOTE | 2018-10-24 17:03 | NUR ---
ED Nurse Note: Report given to Prisca BATISTA of telemetry unit. Room is not ready yet for pt transfer. ER Charge nruse notified.
--- NOTE | 2018-10-24 17:29 | NUR ---
CASE MANAGEMENT: INITIAL REVIEW 10/24/2018 68 YO M ZARINA FROM HOME CC: BETH PMHx: ACS. HTN. SZ. SI:MULTIPLE SZ. T 98.4 HR 120 RR 18 B/P 133/78 SATS 97% ON RA WBC 12.9 AST 38 TOTAL CK 318 PHENYTOIN 1 IS: NS BOLUS X1 KEPPRA IV X1 TYLENOL PO X1 MORPHINE IV X1 ZOFRAN IV X1 CT HEAD (-) PATIENT ADMITTED TO MED/SURG 10/24/2018 @ 1606 DCP: PATIENT TO BE DISCHARGED TO HOME ONCE MEDICALLY CLEARED. PLAN OF CARE: NEURO CONSULT SZ PRECAUTIONS Addendum: 10/24/18 at 8 by Lizbeth Hodgson CM INTERQUAL MET
--- NOTE | 2018-10-24 18:19 | NUR ---
NURSE NOTES: Patient transferred from ER via gurney. Report received from LYNNE Segura. Patient is alert and oriented X4. Patient reports headache 6. Patient oriented to room. Will continue to monitor.
[2018-10-24 18:20] VITALS: BP 114/71
--- NOTE | 2018-10-24 18:39 | NUR ---
NURSE NOTES: Dr. Rebollar contacted for admission orders. Awaiting call back.
[2018-10-24] MEDS ORDERED: LORazepam Inj 2mg/ml 1ml IV PRN (19:15)
--- NOTE | 2018-10-24 19:20 | NUR ---
NURSE NOTES: Dr. Rebollar returned call. New orders received and entered.
--- NOTE | 2018-10-24 19:32 | NUR ---
HAND-OFF: Report given to LYNNE Chambers.
[2018-10-24 20:00] VITALS: BP 126/72
--- NOTE | 2018-10-24 20:30 | NUR ---
NURSE NOTES: PATIENT IN BED, AWAKE, ALERT, VERBALLY RESPONSIVE. NO SEIZURE ACTIVITY. BED IN LOW POSITION, CALL LIGHT WITHIN REACH, BED ALARM ON, SEIZURE PRECAUTION INITIATED. NO S/S DISTRESS NOTED. WILL CONTINUE TO MONITOR.
[2018-10-24] MEDS: Heparin 5000 units/ml inj SUBQ SCH (21:00)
[2018-10-24] MEDS ORDERED: Tamsulosin 0.4mg cap ORAL SCH (21:00)
[2018-10-24] MEDS ORDERED: Atorvastatin 20mg tab ORAL SCH (21:00)
[2018-10-25] VITALS: BP 106/70
[2018-10-25 04:57] VITALS: BP 113/67
--- NOTE | 2018-10-25 06:37 | NUR ---
NURSE NOTES: PATIENT ASLEEP, NO DISTRESS.
--- NOTE | 2018-10-25 07:29 | NUR ---
HAND-OFF: Report given to SARAY SINGLETON RN.
--- NOTE | 2018-10-25 07:46 | History & Physical ---
History and Physical History & Physicial 68-year-old male who is admitted for uncontrolled seizures The patient admits to alcohol use. The patient with alcohol-related seizures. The patient did have a history of hepatitis, pancreatitis in the past but none recent. The patient now admitted for further care and management and overnight management and monitoring for seizures. The patient did have a CT of the head. currently comfortable and nonfocal PAST MEDICAL HISTORY: Notable for the above, notable for alcohol use, seizure history, pancreatitis MEDICATIONS: Reviewed. ALLERGIES: Reviewed. SOCIAL HISTORY: known alcohol use. The patient is and has DPOA REVIEW OF SYSTEMS: All 10 points reviewed and otherwise negative. PHYSICAL EXAMINATION: GENERAL: A well-developed male, NAD HEENT: Negative. Extraocular movements are grossly intact. NECK: Supple. carotids 2 + LUNGS: moderate air entry. Minimal rhonchi. CARDIAC: Regular rate and rhythm without MRG ABDOMEN: Diffusely tender no distention. NABS EXTREMITIES: No cyanosis or clubbing. No edema. NEUROLOGICAL: Grossly nonfocal. No significant tremor. Laboratory Tests Test 10/24/18 13:40 White Blood Count 12.9 K/UL (4.8-10.8) H Red Blood Count 4.30 M/UL (4.70-6.10) L Hemoglobin 13.8 G/DL (14.2-18.0) L Hematocrit 41.8 % (42.0-52.0) L Mean Corpuscular Volume 97 FL (80-99) Mean Corpuscular Hemoglobin 32.1 PG (27.0-31.0) H Mean Corpuscular Hemoglobin Concent 33.0 G/DL (32.0-36.0) Red Cell Distribution Width 12.2 % (11.6-14.8) Platelet Count 136 K/UL (150-450) L Mean Platelet Volume 6.3 FL (6.5-10.1) L Neutrophils (%) (Auto) 81.0 % (45.0-75.0) H Lymphocytes (%) (Auto) 9.7 % (20.0-45.0) L Monocytes (%) (Auto) 8.1 % (1.0-10.0) Eosinophils (%) (Auto) 0.2 % (0.0-3.0) Basophils (%) (Auto) 0.9 % (0.0-2.0) Sodium Level 141 MMOL/L (136-145) Potassium Level 4.1 MMOL/L (3.5-5.1) Chloride Level 105 MMOL/L (98-107) Carbon Dioxide Level 21 MMOL/L (21-32) Anion Gap 15 mmol/L (5-15) Blood Urea Nitrogen 12 mg/dL (7-18) Creatinine 1.2 MG/DL (0.55-1.30) Estimat Glomerular Filtration Rate > 60 mL/min (>60) Glucose Level 100 MG/DL (74-106) Calcium Level 9.4 MG/DL (8.5-10.1) Total Bilirubin 0.6 MG/DL (0.2-1.0) Aspartate Amino Transf (AST/SGOT) 38 U/L (15-37) H Alanine Aminotransferase (ALT/SGPT) 37 U/L (12-78) Alkaline Phosphatase 80 U/L (46-116) Total Creatine Kinase 318 U/L (26-308) H Creatine Kinase MB 2.9 NG/ML (0.0-3.6) Creatine Kinase MB Relative Index 0.9 Troponin I 0.000 ng/mL (0.000-0.056) Total Protein 7.3 G/DL (6.4-8.2) Albumin 4.2 G/DL (3.4-5.0) Globulin 3.1 g/dL Albumin/Globulin Ratio 1.4 (1.0-2.7) Phenytoin (Dilantin) Level 1.0 ug/mL (10-20) L IMPRESSION seizure disorder noncompliance alcohol use leukocytosis PLAN IV hydration PT kathleenra admits he was not taking meds monitor and likely dc today if stable patient agreeable and alert impression, plan, and exam edited and reviewed in detail care discussed with Alfonzo Matute MD Oct 25, 2018 07:46
--- NOTE | 2018-10-25 07:48 | General Progress Note ---
Subjective Allergies: Coded Allergies: No Known Allergies (Unverified , 09/22/17) Objective Last 24 Hour Vital Signs Date Time Temp Pulse Resp B/P (MAP) Pulse Ox O2 Delivery O2 Flow Rate FiO2 10/25/18 04:57 97.7 75 18 113/67 (82) 100 10/25/18 00:00 97.0 95 18 106/70 (82) 96 10/24/18 23:29 Room Air 10/24/18 22:05 98.6 10/24/18 20:00 98.0 76 18 126/72 (90) 96 10/24/18 18:31 Room Air 10/24/18 18:20 98.6 87 20 114/71 (85) 96 10/24/18 17:21 98.4 77 20 137/93 98 Room Air 10/24/18 16:30 98.4 77 20 137/93 98 Room Air 10/24/18 14:31 98.7 10/24/18 14:20 98.2 89 17 133/76 98 Room Air 10/24/18 13:48 98.7 10/24/18 12:20 98.7 102 20 122/80 97 Room Air 10/24/18 12:20 102 20 Room Air 10/24/18 12:10 98.4 120 18 133/78 97 Intake and Output 10/24/18 10/25/18 19:00 07:00 Intake Total 600 ml 860 ml Output Total 500 ml Balance 600 ml 360 ml Intake Oral 60 ml IV Total 600 ml 800 ml Output Urine Total 500 ml # Voids 2 2 Laboratory Tests 10/24/18 13:40: White Blood Count 12.9H, Red Blood Count 4.30L, Hemoglobin 13.8L, Hematocrit 41.8L, Mean Corpuscular Volume 97, Mean Corpuscular Hemoglobin 32.1H, Mean Corpuscular Hemoglobin Concent 33.0, Red Cell Distribution Width 12.2, Platelet Count 136L, Mean Platelet Volume 6.3L, Neutrophils (%) (Auto) 81.0H, Lymphocytes (%) (Auto) 9.7L, Monocytes (%) (Auto) 8.1, Eosinophils (%) (Auto) 0.2, Basophils (%) (Auto) 0.9, Sodium Level 141, Potassium Level 4.1, Chloride Level 105, Carbon Dioxide Level 21, Anion Gap 15, Blood Urea Nitrogen 12, Creatinine 1.2, Estimat Glomerular Filtration Rate > 60, Glucose Level 100, Calcium Level 9.4, Total Bilirubin 0.6, Aspartate Amino Transf (AST/SGOT) 38H, Alanine Aminotransferase (ALT/SGPT) 37, Alkaline Phosphatase 80, Total Creatine Kinase 318H, Creatine Kinase MB 2.9, Creatine Kinase MB Relative Index 0.9, Troponin I 0.000, Total Protein 7.3, Albumin 4.2, Globulin 3.1, Albumin/ Globulin Ratio 1.4, Phenytoin (Dilantin) Level 1.0L Height (Feet): 5 Height (Inches): 10.00 Weight (Pounds): 145 Alfonzo Rebollar MD Oct 25, 2018 07:48
[2018-10-25 08:00] VITALS: BP 100/73
[2018-10-25] MEDS ORDERED: Citalopram Hydrobromide 10mg Tab ORAL SCH (09:00)
[2018-10-25] MEDS ORDERED: Lisinopril 2.5mg tab ORAL SCH (09:00)
[2018-10-25] MEDS ORDERED: Metoprolol Succinate XL 50mg tab ORAL SCH (09:00)
[2018-10-25] MEDS: Heparin 5000 units/ml inj SUBQ SCH (09:00)
[2018-10-25 09:29] LABS: EOSINOPHILS % (AUTO) 0.9 % (0.0-3.0); HEMATOCRIT 36.8 % (42.0-52.0); HEMOGLOBIN 12.3 G/DL (14.2-18.0); LYMPHOCYTES % (AUTO) 23.4 % (20.0-45.0); MEAN CORPUSCULAR VOLUME 96 FL (80-99); MONOCYTES % (AUTO) 7.9 % (1.0-10.0); NEUTROPHILS % (AUTO) 66.7 % (45.0-75.0); PLATELET COUNT 124 K/UL (150-450); RED BLOOD COUNT 3.83 M/UL (4.70-6.10); RED CELL DISTRIBUTION WIDTH 12.1 % (11.6-14.8); WHITE BLOOD COUNT 8.9 K/UL (4.8-10.8)
[2018-10-25 12:00] VITALS: BP 121/77
--- NOTE | 2018-10-25 14:11 | NUR ---
P.T NOTE: P.T EVALUATION COMPLETED. PATIENT IS FUNCTIONING AT BASELINE THEREFORE SKILLED P.T SERVICE IN NOT RECOMMENDED AT THIS TIME. D/C P.T SERVICE.THANK YOU FOR THIS REFERRAL. Addendum: 10/25/18 at 1412 by EVELYN CORDOVA PT Amended: Links added.
--- NOTE | 2018-10-25 15:13 | NUR ---
NURSE NOTES: Patient received this AM. Patient is alert and oriented. Patient requesting to be discharged. Dr. Rebollar notified. New order received and entered. Patient has no reports of discomfort. Side padded, bed locked, and call light within reach. Will continue to monitor.
--- NOTE | 2018-10-25 17:25 | Cardiology Report ---
APPROVED REPORT EKG Measurement Heart [id number] CO [id number] [id number] Normal sinus rhythm Prolonged QT Abnormal ECG
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
--- NOTE | 2018-10-25 18:03 | NUR ---
NURSE NOTES: Patient discharged home. Patient in stable condition. Belongings reviewed and accounted for. IV removed. Taxi voucher provided to patient. Discharge instructions given to patient. Patient accompanied by staff to lobby.
--- NOTE | 2018-10-26 11:30 | Discharge Summary ---
Discharge Summary Discharge Summary _ DATE OF ADMISSION: 10/24/2018 DATE OF DISCHARGE: 10/25/2018 DISCHARGED BY: Dr. Rebollar REASON FOR ADMISSION: 68 years old male with past medical history of hepatitis , pancreatitis , alcohol-related seizure, ETOH abuse, presented for uncontrolled seizure Patient was admitted to alcohol use. Upon evaluation patient was tachycardic. Pulse oximetry was stable on room air. Noted mild leukocytosis with WBC 12.9, stable hemoglobin and hematocrit. Platelets 136. Stable electrolytes. BUN 12 creatinine 1.2. Glucose 100. Ammonia negative. EKG revealed sinus tachycardia, no acute ischemic changes. Stable LFT. Chest x-ray revealed no acute cardiopulmonary pathology. CT of the head demonstrated no acute intracranial bleeding, mass-effect or edema. Mild atrophy of the brain was noted with nonspecific white matter hypoattenuation probably due to chronic small vessel disease. Right posterior scalp contusion noted. Dilantin level subtherapeutic -1.0. In emergency department patient was loaded with Keppra and admitted for further management. HOSPITAL COURSE: Patient admitted to medical surgical floor. Patient started on IV hydration . Seizure precaution maintained. Keppra continued. Ativan was on board as needed for breakthrough seizure. Mental status was closely monitored. Patient was counseled on the importance of compliance with medication regimen. Patient was also counseled on alcohol cessation. Blood pressure was managed with DOUG inhibitor, beta-heather and Prazosin, and remained stable. DVT prophylaxis provided. The next day leukocytosis resolved, patient remained afebrile, no evidence of infection. No further seizure activity. mental status improved to baseline. Patient clinically stabilized and was ready for discharge home. Due to rapid and unexpected improvement in patient condition, patient was discharged in 1 day FINAL DIAGNOSES: Seizure disorder Noncompliance Alcohol use Leukocytosis =resolved DISCHARGE MEDICATIONS: See Medication Reconciliation list. DISCHARGE INSTRUCTIONS: Patient was discharged home. Follow up with primary care provider in one week. I have been assigned to dictate discharge summary for this account. I was not involved in the patient's management. Mercedes Castillo NP Oct 26, 2018 11:30
== END 2018-10-25 17:30 | disposition home or self-care (01) | DRG 101 ==
LOC: EDSEX 12:08 → EDBD 12:08 → EDUNIT# 12:08 → EMR 13:00 → 4E 16:06 → EDBEDREQ 16:33
DX: G40.909 Epilepsy, unspecified, not intractable, without status epilepticus (principal); Z91.19 Patient's noncompliance with other medical treatment and regimen; F10.10 Alcohol abuse, uncomplicated
CPT/HCPCS: 36415; 70450; 71045; 80053; 80185; 80299; 82550; 82553; 84484; 85025; 93005; 96374; 96375; 99285; J2405

== ENCOUNTER 2018-12-08 07:01 | Emergency (ER) | payer MEDICARE, BC, OTHER ==
[~2018-12-08] VITALS: Ht 165.1 cm; Wt 66.7 kg
[2018-12-08] MEDS ORDERED: Tetanus/Diptheria/Pertussis IM ONE (07:15)
[2018-12-08 07:31] VITALS: BP 120/86
[2018-12-08 07:41] LABS: BASOPHILS % (AUTO) 0.6 % (0.0-2.0); HEMOGLOBIN 14.1 G/DL (14.2-18.0); LYMPHOCYTES % (AUTO) 8.9 % (20.0-45.0); MEAN CORPUSCULAR VOLUME 94 FL (80-99); MONOCYTES % (AUTO) 7.5 % (1.0-10.0); PLATELET COUNT 199 K/UL (150-450); RED BLOOD COUNT 4.48 M/UL (4.70-6.10); WHITE BLOOD COUNT 16.9 K/UL (4.8-10.8)
[2018-12-08] MEDS ORDERED: levETIRAcetam 1,000mg/NS100ml 100 ML IVPB ONE (07:45)
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
[2018-12-08 07:50] LABS: ANION GAP 21 mmol/L (5-15); BLOOD UREA NITROGEN 18 mg/dL (7-18); CARBON DIOXIDE 16 MMOL/L (21-32); CHLORIDE 105 MMOL/L (98-107); CREATININE 0.9 MG/DL (0.55-1.30); POTASSIUM 4.6 MMOL/L (3.5-5.1); SODIUM 142 MMOL/L (136-145)
--- NOTE | 2018-12-08 07:54 | NUR ---
ED Nurse Note: ermd at bedside draining a hematoma on rt ear.
--- NOTE | 2018-12-08 07:55 | NUR ---
ED Nurse Note: pt has multiple wounds and abrasions.
[2018-12-08 07:56] LABS: INR 0.9 (0.9-1.1)
[2018-12-08 08:05] LABS: ALANINE AMINOTRANSFERASE 45 U/L (12-78); ALKALINE PHOSPHATASE 83 U/L (46-116); ASPARTATE AMINO TRANSFERASE 76 U/L (15-37); BILIRUBIN,TOTAL 0.6 MG/DL (0.2-1.0); CREATINE KINASE 1545 U/L (26-308)
--- NOTE | 2018-12-08 08:22 | NUR ---
ED Nurse Note: ermd unable to drain hematoma pt moving his head too much. pt picked up via ra [id number] . tx to [facility] . report called to [facility] er . report given to Karena mullen.
[2018-12-08 08:24] VITALS: BP 121/68
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
--- NOTE | 2018-12-08 08:27 | NUR ---
ED Nurse Note: iv on rt hand removed . infiltrated.
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
== END 2018-12-08 08:24 | disposition short-term general hospital (02) ==
LOC: EDBD 07:01 → EMR 07:10
DX: S01.81XA Laceration without foreign body of other part of head, initial encounter (principal); S19.9XXA Unspecified injury of neck, initial encounter; S00.431A Contusion of right ear, initial encounter; Y04.2XXA Assault by strike against or bumped into by another person, initial encounter; Y92.9 Unspecified place or not applicable; F10.129 Alcohol abuse with intoxication, unspecified; M62.82 Rhabdomyolysis; Z23 Encounter for immunization; I10 Essential (primary) hypertension
CPT/HCPCS: 12011; 36415; 71045; 80053; 82550; 82553; 83880; 84484; 85025; 85610; 85730; 90471; 90715; 93005; 96361; 96365; 99291; G0480; J1953; 80329